=== PATIENT | male | born 1960 | race Caucasian/White ===

== ENCOUNTER 2016-05-26 10:19 | Inpatient (IN) | payer OTHER ==
[2016-05-26] VITALS (9 sets, daily range): BP systolic 113–136; BP diastolic 73–91; PULSE 88–124; RESP 14–26; TEMP 97.2–98.7; O2SAT 96–100
[~2016-05-26] VITALS: Ht 162.6 cm; Wt 61.0 kg
[~2016-05-26 10:19] MED LIST: ALBU2.5I INH; ALBU8I INH; IPRA0.02 NEB; LEVA500T PO; LISI10 PO; NEBUMIS6 INH; PRED10 PO; Z.0.OXYGENDME NC
[2016-05-26] MEDS ORDERED: ALBUAER3 INH (10:44)
[2016-05-26] MEDS ORDERED: ALBU.5I NEB (10:45)
[2016-05-26] MEDS ORDERED: IPRA0.02 NEB (10:45)
[2016-05-26] MEDS ORDERED: LEVO500T3 PO (10:46)
[2016-05-26] MEDS ORDERED: LISI10TA3 PO (10:46)
--- NOTE | 2016-05-26 11:14 | PD ---
HPI Chief Complaint: General Weakness Time Seen by Provider: 11:01 Travel History International Travel<30 days: No Contact w/Intl Traveler<30days: No Traveled to known affect area: No History of Present Illness HPI This patient complains of cough and congestion and shortness of breath and wheezing. He is bringing up some clear phlegm. He also has had nausea and vomiting and diarrhea for a couple of days. He's had no diarrhea today but did have vomiting. Symptoms severity is moderate. He has general malaise. No alleviating factors. Has not checked any temperatures. No chest pain. Is a cigarette smoker long-term. Duration 3 days total. PFSH Past Medical History Diminished Hearing: No Hypertension: Yes Musculoskeletal: Yes (cervical DISC HERNIATIONS) Respiratory: Yes (COPD) Tetanus Vaccination: < 5 Years Influenza Vaccination: No Past Surgical History Abdominal Surgery: Yes (HERNIA REPAIR) Social History Alcohol Use: Yes (OCC) Tobacco Use: Yes (1 PPD) Substance Use: No Allergies-Medications (Allergen,Severity, Reaction): Coded Allergies: No Known Allergies (Verified , 04/21/15) Reported Meds & Prescriptions Reported Meds & Active Scripts Active Reported Lisinopril 10 Mg Tab 10 Mg PO DAILY Levofloxacin 500 Mg Tab 500 Mg PO DAILY Ipratropium Neb (Ipratropium [place]) 0.5 Mg/2.5 Ml Amp 0.5 Mg NEB Q6HR NEB Albuterol Neb (Albuterol Sulfate) 2.5 Mg/0.5 Ml Neb 2.5 Mg NEB Q6HR NEB Note: The Albuterol Sulfate Inhalation Solution is concentrated and must be diluted. Read complete instructions carefully before using. Proair Hfa 8.5 GM Inh (Albuterol Sulfate) 90 Mcg/Act Aer 2 Puff INH Q4-6H PRN 108 mcg/actuation Review of Systems General / Constitutional: No: Fever Eyes: No: Visual changes HENT: No: Headaches Cardiovascular: No: Chest Pain or Discomfort Respiratory: Positive: Cough, Shortness of Breath, Wheezing Gastrointestinal: Positive: Nausea, Vomiting, Diarrhea, No: Abdominal Pain Genitourinary: No: Dysuria Musculoskeletal: No: Pain Skin: No Rash Neurologic: No: Weakness Psychiatric: No: Depression Endocrine: No: Polydipsia Hematologic/Lymphatic: No: Easy Bruising Physical Exam Narrative GENERAL: Well-nourished, well-developed patient with cough and wheeze . SKIN: Warm and dry. HEAD: Atraumatic. Normocephalic. EYES: Pupils equal and round. No scleral icterus. No injection or drainage. ENT: No nasal bleeding or discharge. Mucous membranes pink and moist. NECK: Trachea midline. No JVD. CARDIOVASCULAR: Regular rate and rhythm. No murmur appreciated. Tachycardic at 120 RESPIRATORY: No accessory muscle use. Diffuse expiratory wheezing with rhonchi. Breath sounds equal bilaterally. GASTROINTESTINAL: Abdomen soft, non-tender, nondistended. Hepatic and splenic margins not palpable. MUSCULOSKELETAL: No obvious deformities. No clubbing. No cyanosis. No edema. NEUROLOGICAL: Awake and alert. No obvious cranial nerve deficits. Motor grossly within normal limits. Normal speech. PSYCHIATRIC: Appropriate mood and affect; insight and judgment normal. Data Data Last Documented VS Vital Signs Date Time Temp Pulse Resp B/P Pulse Ox O2 Delivery O2 Flow Rate FiO2 05/26/16 11:31 20 100 Nasal Cannula 2.00 05/26/16 11:31 101 136/73 05/26/16 10:36 98.7 Orders Complete Blood Count With Diff (05/26/16 11:07) Basic Metabolic Panel (Bmp) (05/26/16 11:07) Iv Access Insert/Monitor (05/26/16 11:07) Ecg Monitoring (05/26/16 11:07) Oximetry (05/26/16 11:07) Sodium Chloride 0.9% Flush (Ns Flush) (05/26/16 11:15) Methylprednisolone So Succ Inj (Solumedr (05/26/16 11:15) Albuterol-Ipratropium Neb (Duoneb Neb) (05/26/16 11:15) Sodium Chlor 0.9% 1000 Ml Inj (Ns 1000 M (05/26/16 11:15) Ondansetron Inj (Zofran Inj) (05/26/16 11:15) Chest, Single Ap (05/26/16 ) Labs Laboratory Tests Test 05/26/16 11:13 White Blood Count 13.3 TH/MM3 Red Blood Count 4.90 MIL/MM3 Hemoglobin 15.6 GM/DL Hematocrit 46.9 % Mean Corpuscular Volume 95.8 FL Mean Corpuscular Hemoglobin 31.9 PG Mean Corpuscular Hemoglobin 33.3 % Concent Red Cell Distribution Width 12.1 % Platelet Count 182 TH/MM3 Mean Platelet Volume 8.8 FL Neutrophils (%) (Auto) 84.2 % Lymphocytes (%) (Auto) 4.0 % Monocytes (%) (Auto) 8.7 % Eosinophils (%) (Auto) 0.0 % Basophils (%) (Auto) 3.1 % Neutrophils # (Auto) 11.1 TH/MM3 Lymphocytes # (Auto) 0.5 TH/MM3 Monocytes # (Auto) 1.2 TH/MM3 Eosinophils # (Auto) 0.0 TH/MM3 Basophils # (Auto) 0.4 TH/MM3 CBC Comment DIFF FINAL Differential Comment Sodium Level 126 MEQ/L Potassium Level 2.9 MEQ/L Chloride Level 85 MEQ/L Carbon Dioxide Level 26.8 MEQ/L Anion Gap 14 MEQ/L Blood Urea Nitrogen 9 MG/DL Creatinine 0.81 MG/DL Estimat Glomerular Filtration 98 ML/MIN Rate Random Glucose 126 MG/DL Calcium Level 9.0 MG/DL MDM Medical Decision Making Medical Screen Exam Complete: Yes Emergency Medical Condition: Yes Medical Record Reviewed: Yes Differential Diagnosis Pneumonia, COPD, asthma, gastroenteritis Narrative Course I have reviewed the patient's electronic medical record. He was admitted April 2015 for new onset COPD and sepsis IV placed I gave him IV Solu-Medrol and a series of 3 nebulizer treatments I reviewed His chest x-ray and review the radiologist's interpretation. No major consolidation or pneumothorax. Extended cardiac monitoring reveals sinus tachycardia without ectopy CBC is normal Metabolic profile shows hyponatremia and hypokalemia I gave him 1 L normal saline IV and IV Zofran I'm giving him a second liter normal saline IV with 40 mEq of potassium in it On recheck he is still tachycardic and tachypneic and wheezing He will Require hospital admission I reviewed with Dr. Adams Diagnosis Primary Impression: COPD exacerbation Additional Impressions: Hyponatremia Hypokalemia Admitting Information Admitting Physician Requests: Admit Quintin Girard MD May 26, 2016 11:14
[2016-05-26] MEDS ORDERED: ONDANSETRON HCL 4 MG/2 ML VIAL IVP ONE (11:15)
[2016-05-26] MEDS ORDERED: SODIUM CHLORIDE 0.9% FLUSH 10 ML FLUSH IVF PRN (11:15)
[2016-05-26] MEDS ORDERED: SODIUM CHLOR 0.9% 1000 ML INJ 1,000 ML IV ONE (11:15)
[2016-05-26] MEDS ORDERED: methylPREDNISolone SOD SUCC 125 MG/2 ML VIAL IVP ONE (11:15)
[2016-05-26] MEDS: RESP: ALBUTEROL 2.5 MG/IPRATROPIUM 0.5 MG NEB (SCH) INH ×3 (11:25→21:32)
[2016-05-26 11:27] LABS: AUTOMATED NEUTROPHIL # 11.1 TH/MM3 (1.8-7.7); BASOPHIL # 0.4 TH/MM3 (0-0.2); BASOPHIL % 3.1 % (0.0-2.0); HEMATOCRIT 46.9 % (39.0-51.0); LYMPHOCYTE # 0.5 TH/MM3 (1.0-4.8); MEAN CELL VOLUME 95.8 FL (80.0-100.0); MEAN CORPUSCULAR HEMOGLOBIN 31.9 PG (27.0-34.0); MEAN CORPUSCULAR HGB CONC 33.3 % (32.0-36.0); MONO % 8.7 % (0.0-8.0); NEUT % 84.2 % (16.0-70.0); PLATELET COUNT 182 TH/MM3 (150-450); RED CELL DISTRIBUTION WIDTH 12.1 % (11.6-17.2); WHITE BLOOD COUNT 13.3 TH/MM3 (4.0-11.0)
[2016-05-26 11:28] LABS: HEMO FLAGS DIFF FINAL
--- NOTE | 2016-05-26 11:28 | RADHPO ---
EXAM DATE/TIME: 05/26/2016 11:18 [facility] COMPARISON: CHEST SINGLE AP, April 25, 2015, 7:57. INDICATIONS : Short of breath, cough, bilateral rib pain. MEDICAL HISTORY : Chronic obstructive pulmonary disease. SURGICAL HISTORY : None. ENCOUNTER: Initial ACUITY: 2 days PAIN SCORE: 6/10 LOCATION: Bilateral chest ribs FINDINGS: A single view of the chest demonstrates the lungs to be symmetrically aerated with an area of increas ed density just above the right hemidiaphragm laterally. This may be related to the anterior right se venth rib, however. Stable granulomatous type calcification in the right perihilar distribution. Lung s are otherwise clear. There are no effusions. The cardiomediastinal contours are unremarkable. Oss eous structures are intact. CONCLUSION: 1. Stable, subcentimeter granulomatous type calcification laterally in the right perihilar distributi on. 2. Questionable density in the right lower lobe laterally. This may be related to the anterior right seventh rib/costal chondral junction. I do not believe that this would explain current clinical sympt oms. However, noncontrasted CT scan of the chest to be performed for further characterization if clin ically warranted. Jt Resendez MD on May 26, 2016 at 11:22 Board Certified Radiologist. This report was verified electronically.
[2016-05-26 11:42] LABS: BICARBONATE 26.8 MEQ/L (21.0-32.0)
[2016-05-26 11:43] LABS: POTASSIUM 2.9 MEQ/L (3.5-5.1)
[2016-05-26] MEDS: NS + KCL 40 MEQ INJ 1,000 ML IV SCH ×3 (12:57→21:30)
[2016-05-26] MEDS ORDERED: RESP: ALBUTEROL 2.5 MG/3 ML NEB (PRN) INH (13:00)
[2016-05-26] MEDS ORDERED: SODIUM CHLORIDE 0.9% FLUSH 10 ML FLUSH IV FLUSH PRN (13:00)
[2016-05-26] MEDS ORDERED: POTASSIUM CHLORIDE 10 MEQ CONTROLLED RELEASE TAB PO ONE (13:00)
[2016-05-26] MEDS: AZITHROMYCIN 250 MG TAB PO SCH (13:09)
[2016-05-26] MEDS: cefTRIAXone INJ 1,000 MG in SODIUM CHLORIDE 0.9% INJ 100 ML IV SCH (13:10)
[2016-05-26] MEDS ORDERED: ONDANSETRON HCL 4 MG/2 ML VIAL IV PUSH PRN (14:00)
[2016-05-26] MEDS: ACETAMINOPHEN/HYDROcodone 325 MG/5 MG TAB PO PRN ×2 (14:24→21:29)
--- NOTE | 2016-05-26 16:53 | HHI.HP ---
HPI Service [facility] Hospitalists Primary Care Physician Roc Piper Admission Diagnosis copd exac, hyponatremia,hypokalemia Chief Complaint: SOB, cough Travel History International Travel<30 Days: No Contact w/Intl Traveler <30 Da: No Traveled to Known Affected Are: No Sepsis Criteria SIRS Criteria (2 or more): Heart rate over 90, RR > 20 or PaCO2 < 32, WBC > 42523, < 4000 or > 10% bands Sepsis Criteria (SIRS+source): Infect source susp/known Criteria Outcome: Meets sepsis criteria History of Present Illness 56 y.o. WM with COPD who complains of cough and congestion and shortness of breath and wheezing. He is bringing up some clear to yellow phlegm. He also has had nausea and vomiting and diarrhea for a couple of days. The vomiting is actually a chronic, intermittent issue and is mostly a/w post-tussive episodes. He's had no diarrhea today but did have vomiting. Has not checked any temperatures, but doesn't feel as if he has had fever. No chest pain. Is a cigarette smoker long-term. He notes some epigastric pain from all the wretching last PM. No recent foreign travel. It is noted that he was admitted in Apr 2015 with sepsis and new dx of COPD. Reportedly doesn't feel as bad currently as he did when admitted just over a year ago. No hematochezia or melena. Was noted to be slightly hypokalemic with tachypnea and borderline hypoxia on eval in ER. Pt has been given nebs, oxygen and steroids with some relief of symptoms. Review of Systems Constitutional: COMPLAINS OF: Fatigue, DENIES: Diaphoretic episodes, Fever, Weight gain, Weight loss, Chills, Dizziness, Change in appetite, Night Sweats Endocrine: DENIES: Heat/cold intolerance, Polydipsia, Polyuria, Polyphagia Eyes: DENIES: Blurred vision, Diplopia, Eye inflammation, Eye pain, Vision loss , Photosensitivity, Double Vision Ears, nose, mouth, throat: DENIES: Tinnitus, Hearing loss, Vertigo, Nasal discharge, Oral lesions, Throat pain, Hoarseness, Ear Pain, Running Nose, Epistaxis, Sinus Pain, Toothache, Odynophagia Respiratory: COMPLAINS OF: Cough, Wheezing, Sputum production, Shortness of breath, DENIES: Apneas, Snoring, Hemoptysis Cardiovascular: DENIES: Chest pain, Palpitations, Syncope, Dyspnea on Exertion , PND, Lower Extremity Edema, Orthopnea, Claudication Gastrointestinal: COMPLAINS OF: Abdominal pain, Nausea, Vomiting, DENIES: Black stools, Bloody stools, BRB per rectum, Constipation, Diarrhea, GERD, Reflux, Difficulty Swallowing, Anorexia, See HPI Musculoskeletal: COMPLAINS OF: Joint pain, Back pain Hematologic/lymphatic: DENIES: Bruising, Lymphadenopathy Immunologic/allergic: DENIES: Eczema, Urticaria Neurologic: DENIES: Abnormal gait, Headache, Localized weakness, Paresthesias, Seizures, Speech Problems, Tremor, Poor Balance Psychiatric: COMPLAINS OF: Anxiety Past Family Social History Past Medical History COPD exac cervical 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 Read complete instructions carefully before using. Proair Hfa 8.5 GM Inh (Albuterol Sulfate) 90 Mcg/Act Aer 2 Puff INH Q4-6H PRN 108 mcg/actuation Allergies: Coded Allergies: No Known Allergies (Verified , 04/21/15) Family History Father at 73 with copd complications Mother at 74 due to stroke Social History Smokes 1ppd and has done so for 40 yrs Occasionally drinks EtOH, but did drink heavier in the past Previously worked as [employer] Physical Exam Vital Signs Vital Signs Date Time Temp Pulse Resp B/P Pulse Ox O2 Delivery O2 Flow Rate FiO2 05/26/16 16:00 97.2 101 26 114/91 98 05/26/16 14:10 100 Nasal Cannula 2 05/26/16 14:10 100 16 124/88 96 Nasal Cannula 2 05/26/16 12:40 116 16 113/83 100 Nasal Cannula 2 05/26/16 12:40 16 98 Nasal Cannula 2 05/26/16 11:31 20 100 Nasal Cannula 2.00 05/26/16 11:31 101 18 136/73 100 Nasal Cannula 2 05/26/16 11:28 96 Nasal Cannula 2.00 05/26/16 11:17 18 100 Nasal Cannula 2 05/26/16 10:39 113 18 98 Nasal Cannula 2 05/26/16 10:36 98.7 124 18 130/90 97 Physical Exam GENERAL: This is a thin, well-developed patient, in no apparent distress. a/o. cooperative. SKIN: No rashes, ecchymoses or lesions. Cool and dry. HEAD: Atraumatic. Normocephalic. No temporal or scalp tenderness. EYES: Pupils equal round and reactive. Extraocular motions intact. No scleral icterus. No injection or drainage. ENT: Nose without bleeding, purulent drainage or septal hematoma. Airway patent. NECK: Trachea midline. No JVD or lymphadenopathy. Supple, nontender, no meningeal signs. CARDIOVASCULAR: Regular rhythm without murmurs, gallops, or rubs. Mildly tachycardic with rate around 110 on my exam. RESPIRATORY: Prolonged expiratory phase with wheezes, no crackles, fair air movement. GASTROINTESTINAL: Abdomen soft, nondistended. Mild ttp over xiphoid process. No hepato-splenomegaly, or palpable masses. No guarding. MUSCULOSKELETAL: Extremities without clubbing, cyanosis, or edema. No joint tenderness, effusion, or edema noted. No calf tenderness. NEUROLOGICAL: Awake and alert. Cranial nerves II through XII intact. Motor and sensory grossly within normal limits. Five out of 5 muscle strength in all muscle groups. Normal speech. Laboratory Laboratory Tests Test 05/26/16 11:13 White Blood Count 13.3 Red Blood Count 4.90 Hemoglobin 15.6 Hematocrit 46.9 Mean Corpuscular Volume 95.8 Mean Corpuscular Hemoglobin 31.9 Mean Corpuscular Hemoglobin 33.3 Concent Red Cell Distribution Width 12.1 Platelet Count 182 Mean Platelet Volume 8.8 Neutrophils (%) (Auto) 84.2 Lymphocytes (%) (Auto) 4.0 Monocytes (%) (Auto) 8.7 Eosinophils (%) (Auto) 0.0 Basophils (%) (Auto) 3.1 Neutrophils # (Auto) 11.1 Lymphocytes # (Auto) 0.5 Monocytes # (Auto) 1.2 Eosinophils # (Auto) 0.0 Basophils # (Auto) 0.4 CBC Comment DIFF FINAL Differential Comment Sodium Level 126 Potassium Level 2.9 Chloride Level 85 Carbon Dioxide Level 26.8 Anion Gap 14 Blood Urea Nitrogen 9 Creatinine 0.81 Estimat Glomerular Filtration 98 Rate Random Glucose 126 Calcium Level 9.0 Result Diagram: 05/26/16 1113 05/26/16 1113 Imaging Last 72 hours Impressions Chest X-Ray 05/26/16 0000 Signed Impressions: Service Date/Time: Thursday, May 26, 2016 11:18 - CONCLUSION: 1. Stable, subcentimeter granulomatous type calcification laterally in the right perihilar distribution. 2. Questionable density in the right lower lobe laterally. This may be related to the anterior right seventh rib/costal chondral junction. I do not believe that this would explain current clinical symptoms. However, noncontrasted CT scan of the chest to be performed for further characterization if clinically warranted. Jt Resendez MD Assessment and Plan Problem List: (1) COPD exacerbation Status: Acute Plan: Will continue steroids, supplemental oxygen, nebs, abx. Advised pt to stop smoking. Nicoderm patch (2) Hypokalemia Status: Acute Plan: replace and recheck. (3) Hyponatremia Status: Acute Plan: Possibly from mild dehydration, GI loss. Recheck after IVF (4) HTN (hypertension), benign Status: Chronic Plan: BP borderline low. Will hold BP med at this point. (5) Abnormal finding on chest xray Status: Acute Plan: check CT chest Code Status Full Discussed Condition With ER physician, pt and his daughter Jayden Adams MD PhD May 26, 2016 16:53
[2016-05-26 16:57] LABS: POTASSIUM 3.6 MEQ/L (3.5-5.1)
[2016-05-26] MEDS: methylPREDNISolone SOD SUCC 125 MG/2 ML VIAL IVP SCH ×2 (17:20→23:12)
[2016-05-26] MEDS ORDERED: LISI-515 PO (17:25)
[2016-05-26] MEDS ORDERED: VENL37.5 PO (17:25)
[2016-05-26] MEDS ORDERED: HYDR25TA5 PO (17:25)
[2016-05-26] MEDS: REMOVE OLD NICODERM (NICOTINE) PATCH TD SCH (21:00)
[2016-05-26] MEDS: SODIUM CHLORIDE 0.9% FLUSH 10 ML FLUSH IV FLUSH SCH (21:00)
--- NOTE | 2016-05-26 21:14 | RADHPO ---
EXAM DATE/TIME: 05/26/2016 19:37 [facility] COMPARISON: CHEST SINGLE AP, April 25, 2015, 7:57. CHEST SINGLE AP, May 26, 2016, 11:18. INDICATIONS : Hypoxia. Abnormal chest x-ray. RADIATION DOSE: 7.18 CTDIvol (mGy) MEDICAL HISTORY : Chronic obstructive pulmonary disease. Hypertension. SURGICAL HISTORY : None. ENCOUNTER: Initial ACUITY: 2 days PAIN SCALE: 0/10 LOCATION: chest TECHNIQUE: Volumetric scanning of the chest was performed. Using automated exposure control and adjustment of t he mA and/or kV according to patient size, radiation dose was kept as low as reasonably achievable to obtain optimal diagnostic quality images. FINDINGS: LUNGS: Series of nodular infiltrate in the right lower lung. A densely calcified granuloma is present in the middle lobe. There is mild basilar bronchiectasis. PLEURAE: There is no pleural thickening or pleural effusion. MEDIASTINUM: Calcified right hilar lymph nodes are present. No adenopathy. AXILLAE: Within normal limits. No lymphadenopathy. MUSCULOSKELETAL: Within normal limits for patient age. MISCELLANEOUS: The visualized upper abdominal organs demonstrate no acute abnormality. CONCLUSION: Several areas of focal nodular infiltrate in the right lower lung. These should be followed to resolu tion. Shaheed Clancy MD on May 26, 2016 at 21:09 Board Certified Radiologist. This report was verified electronically.
[2016-05-26] MEDS ORDERED: TEMAZEPAM 15 MG CAP PO ONE (22:00)
[2016-05-27] VITALS (8 sets, daily range): BP systolic 107–148; BP diastolic 69–108; PULSE 66–117; RESP 14–22; TEMP 96–98.6; O2SAT 93–100
[2016-05-27] MEDS: NS + KCL 40 MEQ INJ 1,000 ML IV SCH ×2 (02:47→09:16)
[2016-05-27] MEDS: RESP: ALBUTEROL 2.5 MG/IPRATROPIUM 0.5 MG NEB (SCH) INH ×4 (03:25→21:26)
[2016-05-27] MEDS: methylPREDNISolone SOD SUCC 125 MG/2 ML VIAL IVP SCH ×3 (05:34→17:45)
[2016-05-27] MEDS: ACETAMINOPHEN/HYDROcodone 325 MG/5 MG TAB PO PRN ×4 (05:35→23:51)
[2016-05-27 07:26] LABS: ALKALINE PHOSPHATASE 69 U/L (45-117); ALT (GPT) 62 U/L (12-78); ANION GAP 9 MEQ/L (5-15); AST (GOT) 40 U/L (15-37); BICARBONATE 24.4 MEQ/L (21.0-32.0); BLOOD UREA NITROGEN 10 MG/DL (7-18); CHLORIDE 104 MEQ/L (98-107); GLOMERULAR FILTRATION RATE 91 ML/MIN (>89); POTASSIUM 4.8 MEQ/L (3.5-5.1); SODIUM (NA) 137 MEQ/L (136-145); TOTAL BILIRUBIN ADULT 0.5 MG/DL (0.2-1.0)
[2016-05-27] MEDS: SODIUM CHLORIDE 0.9% FLUSH 10 ML FLUSH IV FLUSH SCH (09:00)
[2016-05-27] MEDS ORDERED: NICOTINE 21 MG/24 HR PATCH TD SCH (09:00)
--- NOTE | 2016-05-27 10:18 | HHI.PR ---
Subjective Remarks Patient admitted with exacerbation copd and CT thorax consistent with bilateral pneumonia on rocephin and zithromax and steroids and duonebulizer still sob with minimal exertion. Patient also complaining neck and low back pain . Objective Vitals GENERAL: SKIN: Warm and dry. HEAD: Atraumatic. Normocephalic. EYES: Pupils equal and round. No scleral icterus. No injection or drainage. ENT: No nasal bleeding or discharge. Mucous membranes pink and moist. NECK: Trachea midline. No JVD. CARDIOVASCULAR: Regular rate and rhythm. RESPIRATORY: No accessory muscle use. Bilateral rhonchi. GASTROINTESTINAL: Abdomen soft, non-tender, nondistended. Hepatic and splenic margins not palpable. MUSCULOSKELETAL: Extremities without clubbing, cyanosis, or edema. No obvious deformities. NEUROLOGICAL: Awake and alert. No obvious cranial nerve deficits. Motor grossly within normal limits. Five out of 5 muscle strength in the arms and legs. Normal speech. PSYCHIATRIC: Appropriate mood and affect; insight and judgment normal. Vital Signs Date Time Temp Pulse Resp B/P Pulse Ox O2 Delivery O2 Flow Rate FiO2 05/27/16 09:24 99 Nasal Cannula 2.00 05/27/16 08:00 96.4 87 18 116/81 99 05/27/16 06:35 20 05/27/16 06:14 98.6 66 16 148/79 93 05/27/16 00:04 97.9 97 14 107/69 97 05/26/16 20:12 97.6 88 14 119/79 97 05/26/16 19:32 99 Nasal Cannula 2.00 05/26/16 16:00 97.2 101 26 114/91 98 05/26/16 14:10 100 Nasal Cannula 2 05/26/16 14:10 100 16 124/88 96 Nasal Cannula 2 05/26/16 12:40 116 16 113/83 100 Nasal Cannula 2 05/26/16 12:40 16 98 Nasal Cannula 2 05/26/16 11:31 20 100 Nasal Cannula 2.00 05/26/16 11:31 101 18 136/73 100 Nasal Cannula 2 05/26/16 11:28 96 Nasal Cannula 2.00 05/26/16 11:17 18 100 Nasal Cannula 2 05/26/16 10:39 113 18 98 Nasal Cannula 2 05/26/16 10:36 98.7 124 18 130/90 97 05/26/16 05/26/16 05/27/16 15:00 23:00 07:00 Intake Total 2100 ml 2939 ml Output Total 500 ml Balance 1600 ml 2939 ml Intake IV Total 2100 ml 2939 ml Output Urine Total 500 ml # Voids 2 Result Diagram: 05/26/16 1113 05/27/16 0638 Imaging Last 72 hours Impressions Chest X-Ray 05/26/16 0000 Signed Impressions: Service Date/Time: Thursday, May 26, 2016 11:18 - CONCLUSION: 1. Stable, subcentimeter granulomatous type calcification laterally in the right perihilar distribution. 2. Questionable density in the right lower lobe laterally. This may be related to the anterior right seventh rib/costal chondral junction. I do not believe that this would explain current clinical symptoms. However, noncontrasted CT scan of the chest to be performed for further characterization if clinically warranted. Jt Resendez MD A/P Problem List: (1) COPD exacerbation Status: Acute Plan: Will continue steroids, supplemental oxygen, nebs, abx. Advised pt to stop smoking. Nicoderm patch will consult pulmonary (2) Hypokalemia Status: Acute Plan: replace and recheck. (3) Hyponatremia Status: Acute Plan: Possibly from mild dehydration, GI loss. Recheck after IVF this has improved (4) HTN (hypertension), benign Status: Chronic Plan: BP borderline low. Will hold BP med at this point. (5) Abnormal finding on chest xray Status: Acute Plan: CT chest suggests bilateral pneumonia (6) Pneumonia Status: Acute Plan: on zithromax and rocephin (7) Back pain Status: Chronic Plan: will get xray (8) Neck pain Status: Chronic Plan: will get xray Elpidio Mcfarlane MD May 27, 2016 10:18
[2016-05-27] MEDS: cefTRIAXone INJ 1,000 MG in SODIUM CHLORIDE 0.9% INJ 100 ML IV SCH (12:05)
[2016-05-27] MEDS: AZITHROMYCIN 250 MG TAB PO SCH (12:05)
[2016-05-27] MEDS: VENLAFAXINE HCL XR 75 MG CAP PO SCH (12:09)
--- NOTE | 2016-05-27 12:58 | RADHPO ---
EXAM DATE/TIME: 05/27/2016 11:09 [facility] COMPARISON: No previous studies available for comparison. INDICATIONS : Lower back pain. No known injury. MEDICAL HISTORY : Arthritis. SURGICAL HISTORY : None. ENCOUNTER: Initial ACUITY: >1 year PAIN SCORE: 5/10 LOCATION: lumbar spine. FINDINGS: Imaging of the lumbar spine demonstrates no evidence of fracture or dislocation. The vertebral bodies are normal in size, shape and position. There are severe degenerative changes present at the level o f L4/L5 and L5/S1. Moderate facet degenerative changes are also noted. Adjacent soft tissues are unremarkable. CONCLUSION: Degenerative disc changes and facet degenerative changes seen within the lower lumbar spine. Glendy Mancilla MD on May 27, 2016 at 12:49 Board Certified Radiologist. This report was verified electronically.
--- NOTE | 2016-05-27 12:59 | RADHPO ---
EXAM DATE/TIME: 05/27/2016 11:14 [facility] COMPARISON: No previous studies available for comparison. INDICATIONS : Neck pain. No known injury. MEDICAL HISTORY : Arthritis. SURGICAL HISTORY : None. ENCOUNTER: Initial ACUITY: 1 year PAIN SCORE: 5/10 LOCATION: cervical spine. FINDINGS: Two projection examination was performed. There is normal alignment and curvature of the vertebral b odies down to the level of C7. No evidence of fracture or subluxation. Vertebral body height is vannesa ntained. There are mild degenerative changes seen from the level of C4-C7. Mild bilateral uncovertebr al joint hypertrophy is also noted. The prevertebral soft tissues are of normal thickness. The atlan to-axial articulation is intact. CONCLUSION: Mild degenerative changes seen within the lower cervical spine. No acute abnormality seen.. Glendy Mancilla MD on May 27, 2016 at 12:57 Board Certified Radiologist. This report was verified electronically.
[2016-05-27 13:41] LABS: HEMOGLOBIN A1a 1.1 %; HEMOGLOBIN A1b 1.6 %; HEMOGLOBIN LA1C 2.7 %; HEMOGLOBIN P3 4.3 %
[2016-05-27] MEDS ORDERED: cefTRIAXone INJ 1,000 MG in SODIUM CHLORIDE 0.9% INJ 100 ML IV SCH (19:00)
[2016-05-27 20:04] LABS: BLOOD GAS BASE EXCESS -2.3 mmol/L (-2-2); BLOOD GAS CARBOXYHEMOGLOBIN 1.3 % (0-4); BLOOD GAS HCO3 21 mmol/L (22-26); BLOOD GAS O2 HGB SATURATION 96 % (90-100); BLOOD GAS OXYGEN CONTENT 16.9 Vol % (12.0-20.0); BLOOD GAS PCO2 32 mmHG (38-42); BLOOD GAS PO2 100 mmHG (61-120); BLOOD GAS TOTAL HGB 12.4 G/DL (12.0-16.0); CRITICAL VALUE NO; DRAW SITE RT RADIAL; LITER FLOW 2 L/M; NUMBER OF ARTERIAL PUNCTURES 1; OXYGEN DEVICE NASAL CANNULA; STAT NO; TEMP CORR TO 98.6; ULNAR PULSE PRESENT
[2016-05-27 20:49] LABS: APTT (PATIENT) 27.1 SEC (24.3-30.1); PROTHROMBIN TIME - PATIENT 10.7 SEC (9.8-11.6)
[2016-05-27] MEDS ORDERED: RESP: ALBUTEROL 2.5 MG/3 ML NEB (PRN) INH (21:00)
[2016-05-27] MEDS: REMOVE OLD NICODERM (NICOTINE) PATCH TD SCH (21:00)
[2016-05-27] MEDS: BUDESONIDE-FORMOTEROL 160/4.5 MCG INHALER INH SCH (21:04)
[2016-05-27] MEDS: methylPREDNISolone SOD SUCC 40 MG/1 ML VIAL IV SCH (23:50)
[2016-05-28] VITALS (7 sets, daily range): BP systolic 143–168; BP diastolic 86–97; PULSE 68–116; RESP 18–23; TEMP 95.7–97.8; O2SAT 96–100
[2016-05-28] MEDS: RESP: ALBUTEROL 2.5 MG/IPRATROPIUM 0.5 MG NEB (SCH) INH ×4 (03:31→19:53)
[2016-05-28] MEDS: methylPREDNISolone SOD SUCC 40 MG/1 ML VIAL IV SCH ×4 (05:54→23:40)
--- NOTE | 2016-05-28 06:00 | MB ---
cc: KAMILA SMITH M.D., JOHN DATE OF CONSULTATION: 05/27/2016 REASON FOR CONSULTATION: COPD. HISTORY OF PRESENT ILLNESS: This is a 56-year-old white male with longstanding history of smoking, has been coughing and bringing up thick whitish-yellow mucus. The patient has had these symptoms for at least 2 weeks. He has wheezing and complains of shortness of breath with activity and had some nausea as well as loose stools. The patient was on a cough medicine and apparently came to the emergency room for evaluation and a chest x-ray was done as well as CT scan of the chest which demonstrated mild nodular infiltrates in the periphery. He was also hypokalemic and hypoxic and has been placed on oxygen at two liters. He denies hemoptysis and did not have any significant fever or chills. Upon admission he was started on IV antibiotics and IV Solu-Medrol, and presently feeling a little better. PAST MEDICAL HISTORY: 1. History of sepsis about a year ago treated with hospitalization and treatment. 2. COPD. 3. Cervical disc disease. 4. History of hypertension. 5. Right inguinal hernia repair. HABITS: The patient smoked one to two packs per day for over 47 years. Alcohol use occasional. MEDICATIONS 1. Lisinopril 10 mg daily. 2. Levofloxacin 500 milligrams 3. Nebulized DuoNeb solution t.i.d. 4. ProAir inhaler p.r.n. FAMILY HISTORY: Significant for COPD in his father. Mother had a stroke. SYSTEM REVIEW: The patient had cough, wheezing, sputum production, chest tightness, epigastric distress, nausea. Denies leg swelling, denies urinary symptoms. No GI bleed. No skin rash. No depression or anxiety. PHYSICAL EXAMINATION: This averagely built white male was mildly dyspneic. VITAL SIGNS: Blood pressure is 130/90, pulse is 105, respiratory rate 22, temperature 98.5. HEENT: Head normocephalic. Pupils reactive. Tongue moist. Throat is injected. Nasal mucosae masses. Neck: Supple. No bruits or thyroid enlargement. Chest: Distant breath sounds with inspiratory and expiratory wheezes scattered bilaterally, prolonged expirations. Heart: The heart sounds are irregular, S1-S2. No murmur. No S3. Abdomen: Soft, benign. No masses, organomegaly or tenderness. Extremities: Mild varicosities and decreased peripheral pulses, no edema. No calf tenderness. Neurologic: Reflexes are 1+ with no gross motor deficits. Cranial nerves grossly intact. Rectal: Exam is deferred. IMPRESSION 1. COPD with acute exacerbation. 2. Bilateral granulomatous lung infiltrates with possible old granulomatous scarring. 3. Hypertension. 4. Airway reactivity. PLAN The patient has been placed on O2 at 2 liters. A blood gas study will be done. Sputum will be sent for culture and Gram stain, and pulmonary function study will be done at the bedside. We will continue with DuoNeb solution with the nebulizer q.i.d., antibiotic coverage including Rocephin 1 gram IV daily, Zithromax 500 mg IV daily and Solu-Medrol added at 60 mg IV q.6 hour. The patient will have a follow up chest x-ray. The patient was counseled about quitting cigarette smoking and nicotine patch used if necessary. We will switch him to p.o. medications once he is clinically stable. Thank you Dr. Smith for this consultation. MD TEJA Retana/GINA /10:58 PM /5:21 AM
[2016-05-28 07:21] LABS: AUTOMATED NEUTROPHIL # 14.6 TH/MM3 (1.8-7.7); BASOPHIL % 0.1 % (0.0-2.0); EOSINOPHIL % 0.2 % (0.0-4.0); HEMATOCRIT 37.2 % (39.0-51.0); HEMO FLAGS DIFF FINAL; LYMPH % 3.5 % (9.0-44.0); LYMPHOCYTE # 0.5 TH/MM3 (1.0-4.8); MEAN CELL VOLUME 97.8 FL (80.0-100.0); MEAN CORPUSCULAR HEMOGLOBIN 32.6 PG (27.0-34.0); MEAN CORPUSCULAR HGB CONC 33.3 % (32.0-36.0); MONO % 2.9 % (0.0-8.0); NEUT % 93.3 % (16.0-70.0); PLATELET COUNT 161 TH/MM3 (150-450); RED CELL DISTRIBUTION WIDTH 13.2 % (11.6-17.2); WHITE BLOOD COUNT 15.6 TH/MM3 (4.0-11.0)
[2016-05-28 07:29] LABS: POTASSIUM 4.6 MEQ/L (3.5-5.1)
[2016-05-28 07:33] LABS: BICARBONATE 25.7 MEQ/L (21.0-32.0)
[2016-05-28] MEDS: VENLAFAXINE HCL XR 75 MG CAP PO SCH (08:43)
[2016-05-28] MEDS: BUDESONIDE-FORMOTEROL 160/4.5 MCG INHALER INH SCH ×2 (08:46→21:25)
[2016-05-28] MEDS: ACETAMINOPHEN/HYDROcodone 325 MG/5 MG TAB PO PRN ×4 (08:46→23:40)
--- NOTE | 2016-05-28 11:11 | HHI.PR ---
Subjective Remarks Patient feeling a little better djd cervical and lumbar based on xrays. Seen by pulmonary and continued on medications for now. Objective Vitals GENERAL: SKIN: Warm and dry. HEAD: Atraumatic. Normocephalic. EYES: Pupils equal and round. No scleral icterus. No injection or drainage. ENT: No nasal bleeding or discharge. Mucous membranes pink and moist. NECK: Trachea midline. No JVD. CARDIOVASCULAR: Regular rate and rhythm. RESPIRATORY: No accessory muscle use. Decrease breath sounds GASTROINTESTINAL: Abdomen soft, non-tender, nondistended. Hepatic and splenic margins not palpable. MUSCULOSKELETAL: Extremities without clubbing, cyanosis, or edema. No obvious deformities. NEUROLOGICAL: Awake and alert. No obvious cranial nerve deficits. Motor grossly within normal limits. Five out of 5 muscle strength in the arms and legs. Normal speech. PSYCHIATRIC: Appropriate mood and affect; insight and judgment normal. Vital Signs Date Time Temp Pulse Resp B/P Pulse Ox O2 Delivery O2 Flow Rate FiO2 05/28/16 09:28 96 Nasal Cannula 2.00 05/28/16 08:00 95.7 116 23 167/92 97 05/28/16 00:47 97.0 86 22 151/97 97 05/27/16 21:26 99 Nasal Cannula 2.00 05/27/16 20:32 96.2 98 22 148/108 98 05/27/16 16:00 96.0 117 18 142/83 99 05/27/16 12:00 96.4 105 18 131/80 100 05/27/16 05/27/16 05/28/16 15:00 23:00 07:00 Intake Total 620 ml Balance 620 ml Intake Oral 620 ml # Voids 2 2 1 # Bowel Movements 1 Result Diagram: 05/28/16 0627 05/28/16 0627 Imaging Last 72 hours Impressions Chest X-Ray 05/26/16 0000 Signed Impressions: Service Date/Time: Thursday, May 26, 2016 11:18 - CONCLUSION: 1. Stable, subcentimeter granulomatous type calcification laterally in the right perihilar distribution. 2. Questionable density in the right lower lobe laterally. This may be related to the anterior right seventh rib/costal chondral junction. I do not believe that this would explain current clinical symptoms. However, noncontrasted CT scan of the chest to be performed for further characterization if clinically warranted. Jt Resendez MD A/P Problem List: (1) COPD exacerbation Status: Acute Plan: Will continue steroids, supplemental oxygen, nebs, abx. Advised pt to stop smoking. Nicoderm patch (2) Hypokalemia Status: Acute Plan: replace and recheck. (3) Hyponatremia Status: Acute Plan: Possibly from mild dehydration, GI loss. Recheck after IVF this has improved (4) HTN (hypertension), benign Status: Chronic Plan: BP borderline low. Will hold BP med at this point. (5) Abnormal finding on chest xray Status: Acute Plan: CT chest suggests bilateral pneumonia (6) Pneumonia Status: Acute Plan: on zithromax and rocephin (7) Back pain Status: Chronic Plan: djd on xray (8) Neck pain Status: Chronic Plan: djd on xray Assessment and Plan hopefully home sunday or sunday Elpidio Mcfarlane MD May 28, 2016 11:11
[2016-05-28] MEDS: cefTRIAXone INJ 1,000 MG in SODIUM CHLORIDE 0.9% INJ 100 ML IV SCH (12:38)
[2016-05-28] MEDS: AZITHROMYCIN INJ 500 MG in SODIUM CHLOR 0.9% 250 ML INJ 250 ML IV SCH (12:38)
--- NOTE | 2016-05-28 18:23 | HHI.PR ---
Subjective Remarks Doing better. Coughed up yellow sputum. No fever. Objective Vital Signs Date Time Temp Pulse Resp B/P Pulse Ox O2 Delivery O2 Flow Rate FiO2 05/28/16 16:00 96.0 101 22 152/91 98 05/28/16 12:00 96.0 101 21 143/86 100 05/28/16 09:28 96 Nasal Cannula 2.00 05/28/16 08:00 95.7 116 23 167/92 97 05/28/16 00:47 97.0 86 22 151/97 97 05/27/16 21:26 99 Nasal Cannula 2.00 05/27/16 20:32 96.2 98 22 148/108 98 I/O 05/27/16 05/27/16 05/27/16 05/28/16 05/28/16 05/28/16 07:00 15:00 23:00 07:00 15:00 23:00 Intake Total 2939 ml 620 ml Balance 2939 ml 620 ml Intake Oral 620 ml IV Total 2939 ml # Voids 2 2 2 1 # Bowel Movements 1 Result Diagram: 05/28/1662605/28/16 0627 Objective Remarks This averagely built white male was alert HEENT: Head normocephalic. Pupils reactive. Tongue moist. Throat is injected. Nasal mucosae masses. Neck: Supple. No bruits or thyroid enlargement. Chest: Distant breath sounds with inspiratory and expiratory wheezes scattered bilaterally, prolonged expirations. Heart: The heart sounds are regular, S1-S2. No murmur. No S3. Abdomen: Soft, benign. No masses, organomegaly or tenderness. Extremities: Mild varicosities and decreased peripheral pulses, no edema. No calf tenderness. Neurologic: Reflexes are 1+ with no gross motor deficits. Cranial nerves grossly intact. Rectal: Exam is deferred. Assessment and Plan Assessment and Plan IMPRESSION 1. COPD with acute exacerbation. 2. Bilateral granulomatous lung infiltrates with possible old granulomatous scarring. 3. Hypertension. 4. Airway reactivity. Plan : 1. Cont Antibiotics 2. O2 at 2 L. May need home O2. 3. Solumedrol 40 mg IV q6h. 4. Nebs qid , duoneb. 5. Add Cough med prn 6. PFT in am Mali Lazcano MD May 28, 2016 18:22
[2016-05-28] MEDS: REMOVE OLD NICODERM (NICOTINE) PATCH TD SCH (21:00)
[2016-05-28] MEDS ORDERED: BUDESONIDE-FORMOTEROL 160/4.5 MCG INHALER INH SCH (21:00)
[2016-05-29] VITALS (7 sets, daily range): BP systolic 121–192; BP diastolic 81–94; PULSE 85–98; RESP 18–20; TEMP 96.1–97.3; O2SAT 93–98
[2016-05-29] MEDS: LISINOPRIL 20 MG TAB PO SCH ×2 (01:04→09:21)
[2016-05-29] MEDS: RESP: ALBUTEROL 2.5 MG/IPRATROPIUM 0.5 MG NEB (SCH) INH ×2 (03:21→09:04)
[2016-05-29 06:28] LABS: AUTOMATED NEUTROPHIL # 10.7 TH/MM3 (1.8-7.7); BASOPHIL % 0.1 % (0.0-2.0); HEMATOCRIT 37.7 % (39.0-51.0); LYMPH % 3.6 % (9.0-44.0); LYMPHOCYTE # 0.4 TH/MM3 (1.0-4.8); MEAN CELL VOLUME 97.6 FL (80.0-100.0); MEAN CORPUSCULAR HEMOGLOBIN 31.6 PG (27.0-34.0); MEAN CORPUSCULAR HGB CONC 32.4 % (32.0-36.0); MONO % 3.7 % (0.0-8.0); NEUT % 92.6 % (16.0-70.0); PLATELET COUNT 182 TH/MM3 (150-450); RED BLOOD COUNT 3.87 MIL/MM3 (4.50-5.90); RED CELL DISTRIBUTION WIDTH 12.7 % (11.6-17.2); WHITE BLOOD COUNT 11.5 TH/MM3 (4.0-11.0)
[2016-05-29] MEDS: methylPREDNISolone SOD SUCC 40 MG/1 ML VIAL IV SCH ×4 (06:28→23:32)
[2016-05-29] MEDS: ACETAMINOPHEN/HYDROcodone 325 MG/5 MG TAB PO PRN ×4 (06:34→23:33)
[2016-05-29 06:35] LABS: HEMO FLAGS DIFF FINAL
--- NOTE | 2016-05-29 09:00 | RADHPO ---
EXAM DATE/TIME: 05/29/2016 08:19 [place] COMPARISON: No previous studies available for comparison. INDICATIONS : Short of breath. MEDICAL HISTORY : Chronic obstructive pulmonary disease. SURGICAL HISTORY : None. ENCOUNTER: Subsequent ACUITY: 4 - 6 days PAIN SCORE: 0/10 LOCATION: Bilateral chest FINDINGS: Very minimal bibasilar parenchymal changes are evident with mild hyperinflation. Majority of these a re probably on the right side base of the CT scan. These are best seen on the lateral exam. The car diomediastinal contours are unremarkable. Osseous structures are intact. CONCLUSION: Minimal bibasilar parietal changes probably right base seen best on lateral exam. This will represen t the base line for conventional radiographic follow up. Russell Zelaya MD FACR on May 29, 2016 at 8:55 Board Certified Radiologist. This report was verified electronically.
[2016-05-29] MEDS: VENLAFAXINE HCL XR 75 MG CAP PO SCH (09:20)
[2016-05-29] MEDS: BUDESONIDE-FORMOTEROL 160/4.5 MCG INHALER INH SCH ×2 (09:20→21:02)
--- NOTE | 2016-05-29 10:02 | HHI.PR ---
Subjective Remarks Patient cough better labs are better chest xray improved for PFT today Objective Vitals GENERAL: SKIN: Warm and dry. HEAD: Atraumatic. Normocephalic. EYES: Pupils equal and round. No scleral icterus. No injection or drainage. ENT: No nasal bleeding or discharge. Mucous membranes pink and moist. NECK: Trachea midline. No JVD. CARDIOVASCULAR: Regular rate and rhythm. RESPIRATORY: No accessory muscle use. Clear to auscultation. Breath sounds equal bilaterally. GASTROINTESTINAL: Abdomen soft, non-tender, nondistended. Hepatic and splenic margins not palpable. MUSCULOSKELETAL: Extremities without clubbing, cyanosis, or edema. No obvious deformities. NEUROLOGICAL: Awake and alert. No obvious cranial nerve deficits. Motor grossly within normal limits. Five out of 5 muscle strength in the arms and legs. Normal speech. PSYCHIATRIC: Appropriate mood and affect; insight and judgment normal. Vital Signs Date Time Temp Pulse Resp B/P Pulse Ox O2 Delivery O2 Flow Rate FiO2 05/29/16 09:06 98 Nasal Cannula 2.00 05/29/16 08:25 18 05/29/16 08:00 96.1 95 20 151/94 98 05/29/16 04:00 96.5 90 18 162/81 93 05/29/16 00:00 96.4 85 18 192/91 97 05/28/16 20:00 97.8 68 18 168/89 98 05/28/16 19:54 98 Nasal Cannula 2.00 05/28/16 16:00 96.0 101 22 152/91 98 05/28/16 12:00 96.0 101 21 143/86 100 05/28/16 05/28/16 05/29/16 15:00 23:00 07:00 Intake Total 450 ml 600 ml Output Total 400 ml Balance 450 ml 200 ml Intake Oral 450 ml 600 ml Output Urine Total 400 ml # Voids 2 3 # Bowel Movements 0 0 Result Diagram: 05/29/16 0530 05/28/16 0627 Imaging Last 72 hours Impressions Chest X-Ray 05/26/16 0000 Signed Impressions: Service Date/Time: Thursday, May 26, 2016 11:18 - CONCLUSION: 1. Stable, subcentimeter granulomatous type calcification laterally in the right perihilar distribution. 2. Questionable density in the right lower lobe laterally. This may be related to the anterior right seventh rib/costal chondral junction. I do not believe that this would explain current clinical symptoms. However, noncontrasted CT scan of the chest to be performed for further characterization if clinically warranted. Jt Resendez MD A/P Problem List: (1) COPD exacerbation Status: Acute Plan: Will continue steroids, supplemental oxygen, nebs, abx. Advised pt to stop smoking. Nicoderm patch will need oxygen walk test probable discharge tomorrow (2) Hypokalemia Status: Acute Plan: replace and recheck. (3) Hyponatremia Status: Acute Plan: Possibly from mild dehydration, GI loss. Recheck after IVF this has improved (4) HTN (hypertension), benign Status: Chronic Plan: BP borderline low. Will hold BP med at this point. (5) Abnormal finding on chest xray Status: Acute Plan: CT chest suggests bilateral pneumonia (6) Pneumonia Status: Acute Plan: on zithromax and rocephin improved on chest xray (7) Back pain Status: Chronic Plan: djd on xray (8) Neck pain Status: Chronic Plan: djd on xray Assessment and Plan hopefully home sunday or sunday Elpidio Mcfarlane MD May 29, 2016 10:02
[2016-05-29] MEDS: cefTRIAXone INJ 1,000 MG in SODIUM CHLORIDE 0.9% INJ 100 ML IV SCH (12:57)
[2016-05-29] MEDS: AZITHROMYCIN INJ 500 MG in SODIUM CHLOR 0.9% 250 ML INJ 250 ML IV SCH (12:58)
[2016-05-29] MEDS: RESP: ALBUTEROL 2.5 MG/IPRATROPIUM 0.5 MG NEB (SCH) NEB ×2 (14:59→19:51)
[2016-05-29] MEDS: NICOTINE 21 MG/24 HR PATCH TD SCH (20:00)
[2016-05-30] VITALS: BP 163/101; PULSE 90; RESP 18; TEMP 97.8; O2SAT 98
[2016-05-30 00:57] VITALS: BP 168/105
[2016-05-30] MEDS ORDERED: LISINOPRIL 20 MG TAB PO ONE (01:15)
[2016-05-30] MEDS: ACETAMINOPHEN/HYDROcodone 325 MG/5 MG TAB PO PRN ×2 (05:47→12:47)
[2016-05-30] MEDS: methylPREDNISolone SOD SUCC 40 MG/1 ML VIAL IV SCH ×2 (05:47→12:00)
[2016-05-30 07:44] VITALS: O2SAT 99
[2016-05-30] MEDS: RESP: ALBUTEROL 2.5 MG/IPRATROPIUM 0.5 MG NEB (SCH) NEB (07:44)
[2016-05-30 08:00] VITALS: BP 166/100; PULSE 78; RESP 18; TEMP 97.3; O2SAT 100
[2016-05-30] MEDS: NICOTINE 21 MG/24 HR PATCH TD SCH (08:36)
[2016-05-30] MEDS: BUDESONIDE-FORMOTEROL 160/4.5 MCG INHALER INH SCH (08:37)
[2016-05-30] MEDS: VENLAFAXINE HCL XR 75 MG CAP PO SCH (08:37)
[2016-05-30] MEDS: LISINOPRIL 20 MG TAB PO SCH (08:37)
[2016-05-30] MEDS ORDERED: REMOVE OLD NICODERM (NICOTINE) PATCH TD SCH (09:00)
[2016-05-30] MEDS ORDERED: SYMB160A INH (10:51)
[2016-05-30] MEDS ORDERED: HYDR-3516 PO (10:51)
[2016-05-30] MEDS ORDERED: LISI-515 PO (10:51)
[2016-05-30] MEDS ORDERED: NICO21DI2 TD (10:51)
--- NOTE | 2016-05-30 10:59 | HHI.DS ---
Discharge Summary Admission Date May 26, 2016 at 12:33 Admitting Diagnosis copd exac, hyponatremia,hypokalemia (1) COPD exacerbation (2) Hypokalemia Diagnosis: Secondary (3) Hyponatremia Diagnosis: Secondary (4) HTN (hypertension), benign Diagnosis: Secondary (5) Abnormal finding on chest xray Diagnosis: Secondary (6) Pneumonia Diagnosis: [facility] (7) Back pain Diagnosis: Secondary (8) Neck pain Diagnosis: Secondary (9) Pneumonia Diagnosis: [facility] Brief History 56 y.o. WM with COPD who complains of cough and congestion and shortness of breath and wheezing. He is bringing up some clear to yellow phlegm. He also has had nausea and vomiting and diarrhea for a couple of days. The vomiting is actually a chronic, intermittent issue and is mostly a/w post-tussive episodes. He's had no diarrhea today but did have vomiting. Has not checked any temperatures, but doesn't feel as if he has had fever. No chest pain. Is a cigarette smoker long-term. He notes some epigastric pain from all the wretching last PM. No recent foreign travel. It is noted that he was admitted in Apr 2015 with sepsis and new dx of COPD. Reportedly doesn't feel as bad currently as he did when admitted just over a year ago. No hematochezia or melena. Was noted to be slightly hypokalemic with tachypnea and borderline hypoxia on eval in ER. Pt has been given nebs, oxygen and steroids with some relief of symptoms. CBC/BMP: 05/29/16 0530 05/28/16 0627 Significant Findings Laboratory Tests Test 05/27/16 05/28/16 05/29/16 19:55 06:27 05:30 Blood Gas HCO3 21 mmol/L (22-26) Blood Gas Base Excess -2.3 mmol/L (-2-2) Arterial Blood pH 7.44 (7.380-7.420) Arterial Blood Partial 32 mmHG (38-42) Pressure CO2 White Blood Count 15.6 TH/MM3 11.5 TH/MM3 (4.0-11.0) (4.0-11.0) Red Blood Count 3.80 MIL/MM3 3.87 MIL/MM3 (4.50-5.90) (4.50-5.90) Hemoglobin 12.4 GM/DL 12.2 GM/DL (13.0-17.0) (13.0-17.0) Hematocrit 37.2 % 37.7 % (39.0-51.0) (39.0-51.0) Neutrophils (%) (Auto) 93.3 % 92.6 % (16.0-70.0) (16.0-70.0) Lymphocytes (%) (Auto) 3.5 % 3.6 % (9.0-44.0) (9.0-44.0) Neutrophils # (Auto) 14.6 TH/MM3 10.7 TH/MM3 (1.8-7.7) (1.8-7.7) Lymphocytes # (Auto) 0.5 TH/MM3 0.4 TH/MM3 (1.0-4.8) (1.0-4.8) Sodium Level 135 MEQ/L (136-145) Random Glucose 147 MG/DL (74-106) Calcium Level 8.3 MG/DL (8.5-10.1) PE at Discharge GENERAL: SKIN: Warm and dry. HEAD: Atraumatic. Normocephalic. EYES: Pupils equal and round. No scleral icterus. No injection or drainage. ENT: No nasal bleeding or discharge. Mucous membranes pink and moist. NECK: Trachea midline. No JVD. CARDIOVASCULAR: Regular rate and rhythm. RESPIRATORY: No accessory muscle use. Rhonchi at bases GASTROINTESTINAL: Abdomen soft, non-tender, nondistended. Hepatic and splenic margins not palpable. MUSCULOSKELETAL: Extremities without clubbing, cyanosis, or edema. No obvious deformities. NEUROLOGICAL: Awake and alert. No obvious cranial nerve deficits. Motor grossly within normal limits. Five out of 5 muscle strength in the arms and legs. Normal speech. PSYCHIATRIC: Appropriate mood and affect; insight and judgment normal. Hospital Course Patient admitted with exacerbation of copd . Patient at home has nebulizer and oxygen was started on IV steroids and on CT thorax did have pneumonia and was started on IV zithromax and rocephin with improvement on chest xray also was seen by pulmonary and symbicort was added and patient counseled on smoking and started on habitrol patch which will be continued. Patient had neck and back pain xrays showed djd on norco with improvement. Patient improved clinically and will be discharged with 1 week of cefzil 500 bid and zithromax 500 a day prednisone taper 40 for 5 days 30 for 5 days 20 for 5 days 10 for 5 days then 5 for 5 days and symbicort and habitrol patch continue lisinopril for blood pressure which was increased as his blood pressure was high to 20 bid and this will be called in as well. Will forward and discuss with his PCP. low potassium and sodium resolved with IV treatment. Pt Condition on Discharge: Good Discharge Disposition: Discharge Home Discharge Instructions DIET: Follow Instructions for: Heart Healthy Diet Activities you can perform: Regular-No Restrictions New Medications: Budesonide-Formoterol Inh (Symbicort Inh) 160-4.5 Mcg/Act Aero 2 PUFF INH Q12HR copd Days 30 INHALER Hydrocodone-Acetaminophen (Hydrocodone-Acetaminophen) 5-325 mg Tab 1 TAB PO Q6H PRN pain level 3-10 #28 Ref 1 TAB Lisinopril (Lisinopril) 20 Mg Tab 20 MG PO DAILY htn #60 TAB Nicotine Patch (Nicotine Patch) 21 Mg/24 Hr Patch 1 PATCH TD DAILY smoking Days 7 Ref 0 BOX Continued Medications: Albuterol 8.5 GM Inh (Proair Hfa 8.5 GM Inh) 90 Mcg/Act Aer 2 PUFF INH Q4-6H 108 mcg/actuation PRN SHORTNESS OF BREATH #1 Ref 0 INHALER Albuterol Neb (Albuterol Neb) 2.5 Mg/0.5 Ml Neb 2.5 MG NEB Q6HR NEB Note: The Albuterol Sulfate Inhalation Solution is concentrated and must be diluted. Read complete instructions carefully before using. BOX Ipratropium Neb (Ipratropium Neb) 0.5 Mg/2.5 Ml Amp 0.5 MG NEB Q6HR NEB Breathing Treatment Ref 0 NEBULE Lisinopril (Lisinopril) 20 Mg Tab 20 MG PO DAILY #30 Ref 0 TAB Venlafaxine (Effexor) 37.5 Mg Tab 37.5 MG PO Q12H #60 Ref 0 TAB Discontinued Medications: Hydrochlorothiazide (Hydrochlorothiazide) 25 Mg Tab 25 MG PO DAILY #30 Ref 0 TAB Additional Information follow up pcp 1 week Elpidio Mcfarlane MD May 30, 2016 10:59
[2016-05-30] MEDS: cefTRIAXone INJ 1,000 MG in SODIUM CHLORIDE 0.9% INJ 100 ML IV SCH (12:00)
[2016-05-30] MEDS: AZITHROMYCIN INJ 500 MG in SODIUM CHLOR 0.9% 250 ML INJ 250 ML IV SCH (12:47)
--- NOTE | 2016-07-03 10:31 | RSPPFT ---
DATE OF PROCEDURE: 05/28/16 COMMENTS: Spirometry demonstrates an FEV1 of 1.4 at 45% of predicted, FVC of 3.3 at 87%, FEV1/FVC ratio is 42%. Post-bronchodilator study demonstrated no significant change. Lung volumes were not completed. Flow volume loops suggest an obstructive pattern. IMPRESSION: 1. Moderately severe obstructive disease. 2. No significant change following use of bronchodilator.
== END 2016-05-30 14:36 | disposition home or self-care (01) | DRG 190 ==
LOC: PHED 10:19 → PHEDA 12:33 → OBSVTOIN 12:33 → INTOOBSV 12:33 → PH3A 15:30
PROVIDERS: ADMIT Family Medicine; ATTEND Family Medicine
DX: J44.0 Chronic obstructive pulmonary disease with (acute) lower respiratory infection (principal); J18.9 Pneumonia, unspecified organism; J44.1 Chronic obstructive pulmonary disease with (acute) exacerbation; E87.1 Hypo-osmolality and hyponatremia; E87.6 Hypokalemia; I10 Essential (primary) hypertension; F17.210 Nicotine dependence, cigarettes, uncomplicated; M50.30 Other cervical disc degeneration, unspecified cervical region
CPT/HCPCS: 36600; 71010; 71020; 71250; 72040; 72100; 80048; 80053; 82805; 83036; 85025; 85610; 85730; 94060; 94640; 94664; 96361; 96374; 96375; J0456; J0696; J2405; J2920; J2930; J3480; J7030; J7050

== ENCOUNTER 2016-06-03 06:26 | Emergency (ER) | payer OTHER ==
[~2016-06-03] VITALS: Ht 162.6 cm; Wt 62.1 kg
[~2016-06-03 06:26] MED LIST changes: +ALBU.5I NEB; -ALBU2.5I INH; -ALBU8I INH; +ALBUAER3 INH; +HYDR-3516 PO; -LEVA500T PO; +LISI-515 PO; -LISI10 PO; -NEBUMIS6 INH; +NICO21DI2 TD; -PRED10 PO; +SYMB160A INH; +VENL37.5 PO; -Z.0.OXYGENDME NC
[2016-06-03 06:32] VITALS: BP 163/102; PULSE 92; RESP 16; TEMP 98.8; O2SAT 91
[2016-06-03] MEDS ORDERED: RESP: ALBUTEROL 2.5 MG/3 ML NEB (SCH) NEB ONE (07:15)
[2016-06-03 07:41] LABS: CHLORIDE 100 MEQ/L (98-107); SODIUM (NA) 140 MEQ/L (136-145)
--- NOTE | 2016-06-03 07:41 | PD ---
HPI Chief Complaint: Edema Time Seen by Provider: 07:05 Travel History International Travel<30 days: No Contact w/Intl Traveler<30days: No Traveled to known affect area: No History of Present Illness HPI This is a 56-year-old male who was recently hospitalized for COPD exacerbation who presents to the emergency department today with 4 days of swelling and redness of his legs, worse on the left than the right, constant, worsening. He says he feels like every time he lightly touches his skin he starts to bleed. He's also noticed a significant amount of swelling in his legs which is new. He 's never had this before. He denies recently being started on any blood thinners. He is on home oxygen for his COPD. PFSH Past Medical History Anxiety: Yes Cancer: No Diminished Hearing: No Endocrine: No Gastrointestinal Disorders: Yes Genitourinary: No Hypertension: Yes Immune Disorder: No Musculoskeletal: Yes (cervical DISC HERNIATIONS) Neurologic: No Psychiatric: Yes Reproductive: No Respiratory: Yes (COPD) Sickle Cell Disease: No Past Surgical History Abdominal Surgery: Yes (HERNIA REPAIR) Social History Alcohol Use: Yes (OCC) Tobacco Use: Yes (QUIT AFTER LAST ADMISSION, USES E-CIG) Substance Use: No Allergies-Medications (Allergen,Severity, Reaction): Coded Allergies: No Known Allergies (Verified , 06/03/16) Reported Meds & Prescriptions Reported Meds & Active Scripts Active Nicotine Patch (Nicotine) 21 Mg/24 Hr Patch 1 Patch TD DAILY 7 Days Lisinopril 20 Mg Tab 20 Mg PO DAILY Hydrocodone-Acetaminophen 5-325 mg Tab 1 Tab PO Q6H PRN Symbicort Inh (Budesonide/Formoterol Fumarate) 160-4.5 Mcg/Act Aero 2 Puff INH Q12HR 30 Days Reported Effexor (Venlafaxine HCl) 37.5 Mg Tab 37.5 Mg PO Q12H Ipratropium Neb (Ipratropium [place]) 0.5 Mg/2.5 Ml Amp 0.5 Mg NEB Q6HR NEB Albuterol Neb (Albuterol Sulfate) 2.5 Mg/0.5 Ml Neb 2.5 Mg NEB Q6HR NEB Note: The Albuterol Sulfate Inhalation Solution is concentrated and must be diluted. Read complete instructions carefully before using. Proair Hfa 8.5 GM Inh (Albuterol Sulfate) 90 Mcg/Act Aer 2 Puff INH Q4-6H PRN 108 mcg/actuation Review of Systems Except as stated in HPI: all other systems reviewed are Neg Physical Exam Narrative GENERAL:Well appearing, no acute distress SKIN: Purpura on the anterior aspect of the bilateral lower extremities, left greater than right, nonblanching, no warmth HEAD: Atraumatic. Normocephalic. EYES: Pupils equal and round. No injection or drainage. ENT: Moist mucous membranes NECK: Trachea midline. CARDIOVASCULAR: Regular rate and rhythm. No murmur appreciated. 2+ bilateral pitting edema in the lower extremities. RESPIRATORY: Diffuse expiratory wheezing with poor air movement, no accessory muscle use, speaking full sentences GASTROINTESTINAL: Abdomen soft, non-tender, nondistended. MUSCULOSKELETAL: No obvious deformities. NEUROLOGICAL: Awake and alert. No obvious cranial nerve deficits. Moving all extremities. PSYCHIATRIC: Appropriate mood and affect; insight and judgment normal. Data Data Last Documented VS Vital Signs Date Time Temp Pulse Resp B/P Pulse Ox O2 Delivery O2 Flow Rate FiO2 06/03/16 06:56 90 18 99 Nasal Cannula 2 06/03/16 06:32 98.8 163/102 Orders Complete Blood Count With Diff (06/03/16 07:09) Comprehensive Metabolic Panel (06/03/16 07:09) Prothrombin Time / Inr (Pt) (06/03/16 07:09) Act Partial Throm Time (Ptt) (06/03/16 07:09) B-Type Natriuretic Peptide (06/03/16 07:09) ^ Insert Iv (06/03/16 07:09) Albuterol Neb (Albuterol Neb) (06/03/16 07:15) Furosemide Inj (Lasix Inj) (06/03/16 08:15) Labs Laboratory Tests Test 06/03/16 07:22 White Blood Count 8.6 TH/MM3 Red Blood Count 4.18 MIL/MM3 Hemoglobin 13.8 GM/DL Hematocrit 40.3 % Mean Corpuscular Volume 96.2 FL Mean Corpuscular Hemoglobin 33.0 PG Mean Corpuscular Hemoglobin 34.3 % Concent Red Cell Distribution Width 13.2 % Platelet Count 270 TH/MM3 Mean Platelet Volume 8.2 FL Neutrophils (%) (Auto) 65.3 % Lymphocytes (%) (Auto) 21.8 % Monocytes (%) (Auto) 8.5 % Eosinophils (%) (Auto) 2.0 % Basophils (%) (Auto) 2.4 % Neutrophils # (Auto) 5.6 TH/MM3 Lymphocytes # (Auto) 1.9 TH/MM3 Monocytes # (Auto) 0.7 TH/MM3 Eosinophils # (Auto) 0.2 TH/MM3 Basophils # (Auto) 0.2 TH/MM3 CBC Comment DIFF FINAL Differential Comment Prothrombin Time 10.1 SEC Prothromb Time International 0.9 RATIO Ratio Activated Partial 23.1 SEC Thromboplast Time Sodium Level 140 MEQ/L Potassium Level 4.0 MEQ/L Chloride Level 100 MEQ/L Carbon Dioxide Level 32.9 MEQ/L Anion Gap 7 MEQ/L Blood Urea Nitrogen 13 MG/DL Creatinine 0.82 MG/DL Estimat Glomerular Filtration 96 ML/MIN Rate Random Glucose 96 MG/DL Calcium Level 8.8 MG/DL Total Bilirubin 0.5 MG/DL Aspartate Amino Transf 49 U/L (AST/SGOT) Alanine Aminotransferase 108 U/L (ALT/SGPT) Alkaline Phosphatase 58 U/L B-Type Natriuretic Peptide 133 PG/ML Total Protein 6.2 GM/DL Albumin 3.0 GM/DL MDM Medical Decision Making Medical Screen Exam Complete: Yes Emergency Medical Condition: Yes Interpretation(s) Afebrile, hypertensive No leukocytosis BNP is 133 Coags are normal Differential Diagnosis Cellulitis, thrombocytopenia, coagulopathy, congestive heart failure, vasculitis Narrative Course This is a 56-year-old male who presents to the emergency department with a rash on his lower extremities associated with some edema. His rash appears to be purpura and I suspect he may have a vasculitis which will require further testing as an outpatient. He was placed on a monitor and an IV was established. Labs are obtained which were all reassuring with a normal BNP and normal coags and platelets. I think the patient can be discharged and follow up with his primary care physician. He says he has an appointment in 4 days. I did give him a dose of Lasix for symptomatic relief and will prescribe him a short course of Lasix as an outpatient. Diagnosis Primary Impression: Purpura Patient Instructions: General Instructions Additional Instructions: If you develop severe chest pain, shortness of breath, sweating, lightheadedness , dizziness or difficulty breathing return to the emergency department immediately. Follow-up with your primary care physician without fail regarding your rash. Med/Other Pt SpecificInfo: Prescription(s) given Scripts Potassium Chloride ER 20 Meq Tab20 Meq PO DAILY 5 Days Ref 0 Prov:Rachel Mcclain MD 06/03/16 Furosemide (Lasix)20 Mg Tab20 Mg PO DAILY #5 TAB Ref 0 Prov:Rachel Mcclain MD 06/03/16 Disposition: 01 DISCHARGE HOME Condition: Stable Rachel Mcclain MD Jun 03, 2016 07:41
[2016-06-03 07:42] LABS: AUTOMATED NEUTROPHIL # 5.6 TH/MM3 (1.8-7.7); BASOPHIL # 0.2 TH/MM3 (0-0.2); BASOPHIL % 2.4 % (0.0-2.0); EOSINOPHIL # 0.2 TH/MM3 (0-0.4); HEMATOCRIT 40.3 % (39.0-51.0); HEMO FLAGS DIFF FINAL; LYMPH % 21.8 % (9.0-44.0); LYMPHOCYTE # 1.9 TH/MM3 (1.0-4.8); MEAN CELL VOLUME 96.2 FL (80.0-100.0); MEAN CORPUSCULAR HGB CONC 34.3 % (32.0-36.0); MONO % 8.5 % (0.0-8.0); NEUT % 65.3 % (16.0-70.0); PLATELET COUNT 270 TH/MM3 (150-450); RED BLOOD COUNT 4.18 MIL/MM3 (4.50-5.90); RED CELL DISTRIBUTION WIDTH 13.2 % (11.6-17.2); WHITE BLOOD COUNT 8.6 TH/MM3 (4.0-11.0)
[2016-06-03 07:44] LABS: ANION GAP 7 MEQ/L (5-15); BICARBONATE 32.9 MEQ/L (21.0-32.0); BLOOD UREA NITROGEN 13 MG/DL (7-18)
[2016-06-03 07:45] LABS: APTT (PATIENT) 23.1 SEC (24.3-30.1); INTERNATIONAL NORMALIZED RATIO 0.9 RATIO; PROTHROMBIN TIME - PATIENT 10.1 SEC (9.8-11.6)
[2016-06-03 07:47] LABS: ALT (GPT) 108 U/L (12-78); AST (GOT) 49 U/L (15-37); GLOMERULAR FILTRATION RATE 96 ML/MIN (>89)
[2016-06-03 07:49] LABS: TOTAL BILIRUBIN ADULT 0.5 MG/DL (0.2-1.0)
[2016-06-03 07:50] LABS: ALKALINE PHOSPHATASE 58 U/L (45-117)
[2016-06-03] MEDS ORDERED: FURO1TAB62 PO (08:10)
[2016-06-03] MEDS ORDERED: POTA-163 PO (08:10)
[2016-06-03 08:14] VITALS: BP 164/109; PULSE 86; RESP 18; O2SAT 99
[2016-06-03] MEDS ORDERED: FUROSEMIDE 20 MG/2 ML VIAL IV PUSH ONE (08:15)
== END 2016-06-03 08:32 | disposition home or self-care (01) ==
LOC: PHED 06:26
DX: D69.2 Other nonthrombocytopenic purpura (principal); J44.9 Chronic obstructive pulmonary disease, unspecified; I10 Essential (primary) hypertension; F41.9 Anxiety disorder, unspecified; Z87.891 Personal history of nicotine dependence; Z99.81 Dependence on supplemental oxygen
CPT/HCPCS: 80053; 83880; 85025; 85610; 85730; 94664; 96374; 99284; J1940; J7613

== ENCOUNTER → 2016-06-21 | Outpatient (CLI) | payer OTHER ==
[~2016-06-21] MED LIST changes: +FURO1TAB62 PO; +POTA-163 PO
[2016-06-21 10:22] LABS: BLOOD GAS BASE EXCESS -2.8 mmol/L (-2-2); BLOOD GAS CARBOXYHEMOGLOBIN 6.3 % (0-4); BLOOD GAS HCO3 21 mmol/L (22-26); BLOOD GAS METHEMOGLOBIN 1.2 % (0-2); BLOOD GAS O2 HGB SATURATION 91 % (90-100); BLOOD GAS OXYGEN CONTENT 18.5 Vol % (12.0-20.0); BLOOD GAS PCO2 32 mmHG (38-42); BLOOD GAS PO2 93 mmHG (61-120); BLOOD GAS TOTAL HGB 14.4 G/DL (12.0-16.0); CRITICAL VALUE YES; FIO2 21 %; TEMP CORR TO 98.6
[2016-06-21 10:23] LABS: DRAW SITE RT RADIAL; NUMBER OF ARTERIAL PUNCTURES 1; STAT NO; ULNAR PULSE PRESENT
--- NOTE | 2016-06-26 11:09 | RSPPFT ---
DATE OF PROCEDURE: 06/21/16 COMMENTS: Spirometry shows FVC of 2.9 at 84% of predicted, FEV1 of 1.1 at 49%, FEV1/FVC ratio is decreased. Flow is decreased at FEF 25, FEF 50, FEF 75 and FEF 25-75. There is no significant response after bronchodilator treatment. Lung volumes show residual volume is increased. TLC is increased. Diffusion capacity is mildly decreased. Flow volume loop indicates an obstructive pattern. Room air arterial blood gases show pH of 7.4, PCO2 of 32, PO2 of 93, BiCarb of 21. 6-minute walk test shows no de-saturation. IMPRESSION: 1. Moderately severe obstructive lung disease. 2. No response after bronchodilator treatment. 3. Lung volumes show hyperinflation and air trapping. 4. There is a mild decreased in diffusion capacity. 5. Blood gases show normal oxygenation. 6. No de-saturation found on 6-minute walk test.
== END ==
LOC: PHRSP 07:46
PROVIDERS: ATTEND Specialist
DX: J44.9 Chronic obstructive pulmonary disease, unspecified (principal)
CPT/HCPCS: 36600; 82805; 94060; 94620; 94726; 94729

== ENCOUNTER → 2016-11-08 | Outpatient (CLI) | payer OTHER ==
[~2016-11-08] MED LIST changes: +ASPI81CH CHEW; +AZIT250T3 PO; +GABA600T PO; +LORA-373 PO; +MELO7.5T4 PO; +OXYGENDME NAS.CANULA; +PANT40TA3 PO; +PRED20 PO; +PROP20TA3 PO
== END ==
LOC: CLAB 10:27
PROVIDERS: ATTEND Specialist
DX: B18.2 Chronic viral hepatitis C (principal); R79.9 Abnormal finding of blood chemistry, unspecified; I10 Essential (primary) hypertension; Z28.3 Underimmunization status; Z20.828 Contact with and (suspected) exposure to other viral communicable diseases
CPT/HCPCS: 36415; 82140

== ENCOUNTER 2016-11-11 03:04 | Inpatient (IN) | payer OTHER ==
[~2016-11-11] VITALS: Ht 162.6 cm; Wt 57.3 kg
[2016-11-11] VITALS (9 sets, daily range): BP systolic 112–155; BP diastolic 78–104; PULSE 87–97; RESP 16–22; TEMP 97.7–98.1; O2SAT 95–97
[~2016-11-11 03:04] MED LIST changes: -ASPI81CH CHEW; -AZIT250T3 PO; -GABA600T PO; -LORA-373 PO; -MELO7.5T4 PO; -OXYGENDME NAS.CANULA; -PANT40TA3 PO; -PRED20 PO; -PROP20TA3 PO
[2016-11-11] MEDS ORDERED: methylPREDNISolone SOD SUCC 125 MG/2 ML VIAL IVP ONE (03:15)
[2016-11-11] MEDS ORDERED: SODIUM CHLORIDE 0.9% FLUSH 10 ML FLUSH IVF PRN ×2 (03:15→04:45)
[2016-11-11] MEDS: RESP: ALBUTEROL 2.5 MG/IPRATROPIUM 0.5 MG NEB (SCH) INH (03:24)
[2016-11-11 03:33] LABS: AUTOMATED NEUTROPHIL # 10.3 TH/MM3 (1.8-7.7); BASOPHIL # 0.3 TH/MM3 (0-0.2); BASOPHIL % 1.9 % (0.0-2.0); EOSINOPHIL # 0.2 TH/MM3 (0-0.4); EOSINOPHIL % 1.3 % (0.0-4.0); HEMATOCRIT 46.1 % (39.0-51.0); HEMO FLAGS DIFF FINAL; LYMPH % 10.8 % (9.0-44.0); LYMPHOCYTE # 1.5 TH/MM3 (1.0-4.8); MEAN CELL VOLUME 96.1 FL (80.0-100.0); MEAN CORPUSCULAR HEMOGLOBIN 32.4 PG (27.0-34.0); MEAN CORPUSCULAR HGB CONC 33.8 % (32.0-36.0); MONO % 9.9 % (0.0-8.0); NEUT % 76.1 % (16.0-70.0); PLATELET COUNT 340 TH/MM3 (150-450); WHITE BLOOD COUNT 13.7 TH/MM3 (4.0-11.0)
[2016-11-11] MEDS ORDERED: ONDANSETRON HCL 4 MG/2 ML VIAL IV PUSH ONE (03:45)
[2016-11-11] MEDS ORDERED: ASPI81CH CHEW (04:01)
[2016-11-11] MEDS ORDERED: GABA600T PO (04:01)
[2016-11-11] MEDS ORDERED: MELO7.5T4 PO (04:01)
[2016-11-11 04:07] LABS: CHLORIDE 94 MEQ/L (98-107); POTASSIUM 4.2 MEQ/L (3.5-5.1); SODIUM (NA) 130 MEQ/L (136-145)
[2016-11-11 04:10] LABS: ANION GAP 12 MEQ/L (5-15); BICARBONATE 24.4 MEQ/L (21.0-32.0); BLOOD UREA NITROGEN 8 MG/DL (7-18); MAGNESIUM 2.3 MG/DL (1.5-2.5)
[2016-11-11 04:13] LABS: GLOMERULAR FILTRATION RATE 96 ML/MIN (>89)
--- NOTE | 2016-11-11 04:14 | PD ---
HPI Chief Complaint: Respiratory Symptoms Time Seen by Provider: 03:13 Travel History International Travel<30 days: No Contact w/Intl Traveler<30days: No Traveled to known affect area: No History of Present Illness HPI 56 year-old male presents to the emergency department by private transportation for complaint of shortness of breath worsening this evening. Patient has used his home nebulizer treatment without relief. No chest pain but has noted tightness associated with shortness of breath. Patient is a cough productive of thick green sputum. No fever or chills. Prescription medications at home are not providing symptomatic relief. Patient also has history of hypertension as well as COPD and continues to smoke cigarettes. Patient denies fever or chills. PFSH Past Medical History Narrative Medical COPD anxiety hypertension tobaccoism; nurse interviewed Anxiety: Yes Cancer: No COPD: Yes Diminished Hearing: No Endocrine: No Gastrointestinal Disorders: Yes Genitourinary: No Heparin Induced Thrombocytopen: No Hypertension: Yes Immune Disorder: No Implanted Vascular Access Dvce: No Musculoskeletal: Yes (cervical DISC HERNIATIONS) Neurologic: No Psychiatric: Yes Reproductive: No Respiratory: Yes Sickle Cell Disease: No Tetanus Vaccination: < 5 Years Influenza Vaccination: No Past Surgical History Abdominal Surgery: Yes (HERNIA REPAIR) Social History Alcohol Use: Yes (OCC) Tobacco Use: Yes (QUIT AFTER LAST ADMISSION, USES E-CIG) Substance Use: No Allergies-Medications (Allergen,Severity, Reaction): Coded Allergies: No Known Allergies (Verified , 11/11/16) Reported Meds & Prescriptions Reported Meds & Active Scripts Active Lisinopril 20 Mg Tab 20 Mg PO DAILY Reported Aspirin 81 Mg Chew 81 Mg CHEW DAILY Meloxicam 7.5 Mg Tab 7.5 Mg PO DAILY Gabapentin 600 Mg Tab 600 Mg PO BID Ipratropium Neb (Ipratropium Thompson) 0.5 Mg/2.5 Ml Amp 0.5 Mg NEB Q6HR NEB Albuterol Neb (Albuterol Sulfate) 2.5 Mg/0.5 Ml Neb 2.5 Mg NEB Q6HR NEB Note: The Albuterol Sulfate Inhalation Solution is concentrated and must be diluted. Read complete instructions carefully before using. Proair Hfa 8.5 GM Inh (Albuterol Sulfate) 90 Mcg/Act Aer 2 Puff INH Q4-6H PRN 108 mcg/actuation Review of Systems Except as stated in HPI: all other systems reviewed are Neg General / Constitutional: No: Fever, Chills HENT: No: Congestion Cardiovascular: Positive: Chest Pain or Discomfort Respiratory: Positive: Shortness of Breath, Wheezing Gastrointestinal: Positive: Nausea, No: Abdominal Pain Genitourinary: No: Flank Pain Musculoskeletal: No: Edema Skin: No Rash Neurologic: No: Weakness Psychiatric: Positive: Anxiety Hematologic/Lymphatic: No: Lymph Node Enlargement Physical Exam Narrative GENERAL: Well-developed well-nourished male in obvious respiratory distress with work of breathing SKIN: Warm and dry. HEAD: Normocephalic. EYES: No scleral icterus. No injection or drainage. NECK: Supple, trachea midline. No JVD or lymphadenopathy. CARDIOVASCULAR: Increased Regular rate and rhythm without murmurs, gallops, or rubs. RESPIRATORY: Breath sounds equal bilaterally diffuse wheezing; accessory muscle use. GASTROINTESTINAL: Abdomen soft, non-tender, nondistended. MUSCULOSKELETAL: No cyanosis, or edema. BACK: Nontender without obvious deformity. No CVA tenderness. Data Data Last Documented VS Vital Signs Date Time Temp Pulse Resp B/P (MAP) Pulse Ox O2 Delivery O2 Flow Rate FiO2 11/11/16 03:35 97 22 96 Room Air 11/11/16 03:15 97.8 145/102 (116) Orders Orders Complete Blood Count With Diff (11/11/16 03:13) Basic Metabolic Panel (Bmp) (11/11/16 03:13) B-Type Natriuretic Peptide (11/11/16 03:13) Act Partial Throm Time (Ptt) (11/11/16 03:13) Prothrombin Time / Inr (Pt) (11/11/16 03:13) Magnesium (Mg) (11/11/16 03:13) Troponin I (11/11/16 03:13) Iv Access Insert/Monitor (11/11/16 03:13) Electrocardiogram (11/11/16 03:13) Ecg Monitoring (11/11/16 03:13) Oximetry (11/11/16 03:13) Oxygen Administration (11/11/16 03:13) Chest, Single Ap (11/11/16 03:13) Sodium Chloride 0.9% Flush (Ns Flush) (11/11/16 03:15) Methylprednisolone So Succ Inj (Solumedr (11/11/16 03:15) Albuterol-Ipratropium Neb (Duoneb Neb) (11/11/16 03:15) Alcohol (Ethanol) (11/11/16 03:15) Ondansetron Inj (Zofran Inj) (11/11/16 03:45) Ceftriaxone Inj (Rocephin Inj) (11/11/16 04:45) Azithromycin Inj (Zithromax Inj) (11/11/16 04:45) Admit Order (Ed Use Only) (11/11/16 ) ^ Saline Lock (11/11/16 04:35) Resp Oxygen Xavi C Titrat 1-4 L (11/11/16 ) Notify Dr: Other (11/11/16 04:35) Sodium Chloride 0.9% Flush (Ns Flush) (11/11/16 09:00) Sodium Chloride 0.9% Flush (Ns Flush) (11/11/16 04:45) Sodium Chlor 0.9% 1000 Ml Inj (Ns 1000 M (11/11/16 04:45) Sodium Chlorid 0.9% 500 Ml Inj (Ns 500 M (11/11/16 04:45) Labs Laboratory Tests Test 11/11/16 03:15 11/11/16 03:50 White Blood Count 13.7 TH/MM3 Red Blood Count 4.80 MIL/MM3 Hemoglobin 15.6 GM/DL Hematocrit 46.1 % Mean Corpuscular Volume 96.1 FL Mean Corpuscular Hemoglobin 32.4 PG Mean Corpuscular Hemoglobin Concent 33.8 % Red Cell Distribution Width 13.0 % Platelet Count 340 TH/MM3 Mean Platelet Volume 9.4 FL Neutrophils (%) (Auto) 76.1 % Lymphocytes (%) (Auto) 10.8 % Monocytes (%) (Auto) 9.9 % Eosinophils (%) (Auto) 1.3 % Basophils (%) (Auto) 1.9 % Neutrophils # (Auto) 10.3 TH/MM3 Lymphocytes # (Auto) 1.5 TH/MM3 Monocytes # (Auto) 1.4 TH/MM3 Eosinophils # (Auto) 0.2 TH/MM3 Basophils # (Auto) 0.3 TH/MM3 CBC Comment DIFF FINAL Differential Comment Prothrombin Time 11.0 SEC Prothromb Time International Ratio 1.0 RATIO Activated Partial Thromboplast Time 30.0 SEC B-Type Natriuretic Peptide 57 PG/ML Blood Urea Nitrogen 8 MG/DL Creatinine 0.82 MG/DL Random Glucose 74 MG/DL Calcium Level 9.0 MG/DL Magnesium Level 2.3 MG/DL Sodium Level 130 MEQ/L Potassium Level 4.2 MEQ/L Chloride Level 94 MEQ/L Carbon Dioxide Level 24.4 MEQ/L Anion Gap 12 MEQ/L Estimat Glomerular Filtration Rate 96 ML/MIN Troponin I LESS THAN 0.02 NG/ML Ethyl Alcohol Level LESS THAN 3 MG/DL MDM Medical Decision Making Medical Screen Exam Complete: Yes Emergency Medical Condition: Yes Medical Record Reviewed: Yes Interpretation(s) EKG sinus rhythm rate [address] elevation or injury pattern change noted artifact is present at baseline Chest x-ray: No lobar infiltrate no effusion no vascular congestion no pneumothorax CBC with automated differential total white cell count is elevated 13,700 with 76% neutrophils Chemistries mild hyponatremia 130 values otherwise grossly normal range BNP 57, not elevated coagulations within normal limits troponin I: alc: Differential Diagnosis Dyspnea, exacerbation COPD, pneumonia, CHF, PE, arrhythmia Narrative Course Patient placed on buyer grain IV access obtained specimens collected and sent for resulting patient given Solu-Medrol and DuoNeb updrafts 3 Patient given IV fluids Patient complains of nausea given Zofran Patient meets SIRS criteria but does not look toxic or septic however based on the physiologic response to exacerbation COPD heart rate and respiratory rate elevated and possible stress demargination and hydration status reflective of his white count 13,000 however will presumptively cover with IV antibiotic for clinical bronchitis. Sepsis Criteria SIRS Criteria (2 or more): Heart rate over 90, RR > 20 or PaCO2 < 32, WBC > 45870, < 4000 or > 10% bands Physician Communication Physician Communication call placed to [facility] Diagnosis Primary Impression: COPD exacerbation Admitting Information Admitting Physician Requests: Admit America Law MD Nov 11, 2016 04:14
[2016-11-11 04:18] LABS: ALCOHOL LESS THAN 3 MG/DL (0-5)
--- NOTE | 2016-11-11 04:18 | RADRPT ---
EXAM DATE/TIME: 11/11/2016 03:35 [place] COMPARISON: CHEST PA & LAT, May 29, 2016, 8:19. INDICATIONS : Shortness of breath. MEDICAL HISTORY : Chronic obstructive pulmonary disease. Hypertension SURGICAL HISTORY : None. ENCOUNTER: Initial ACUITY: 1 day PAIN SCORE: 0/10 LOCATION: Bilateral chest FINDINGS: A single view of the chest demonstrates the lungs to be symmetrically aerated without evidence of mas s, infiltrate or effusion. Hyperexpanded lungs again noted. The cardiomediastinal contours are unrem arkable. Osseous structures are intact. CONCLUSION: No evidence of acute cardiopulmonary disease. Shaheed Fuentes MD on November 11, 2016 at 4:16 Board Certified Radiologist. This report was verified electronically.
[2016-11-11] MEDS ORDERED: SODIUM CHLORID 0.9% 500 ML INJ 500 ML IV ONE (04:45)
[2016-11-11] MEDS ORDERED: AZITHROMYCIN INJ 500 MG in SODIUM CHLOR 0.9% 250 ML INJ 250 ML IV ONE (04:45)
[2016-11-11] MEDS ORDERED: cefTRIAXone INJ 1,000 MG in SODIUM CHLORIDE 0.9% INJ 100 ML IV ONE (04:45)
[2016-11-11] MEDS: SODIUM CHLOR 0.9% 1000 ML INJ 1,000 ML IV SCH ×3 (06:12→22:20)
--- NOTE | 2016-11-11 08:04 | HHI.HP ---
HPI Service [facility] Hospitalists Primary Care Physician Jan Zelaya MD Admission Diagnosis exac copd; bronchitis; h/o htn Chief Complaint: sob, cough with white phlegm, wheeze Travel History International Travel<30 Days: No Contact w/Intl Traveler <30 Da: No Traveled to Known Affected Are: No History of Present Illness 56 year-old male known to me from previous admission for COPD exacerbation presents to the emergency department by private transportation for complaint of shortness of breath worsening this evening. Patient has used his home nebulizer treatment without relief. No chest pain but has noted tightness associated with shortness of breath. Patient is a cough productive of thick white sputum. No fever or chills. He has noted increased cough over the last 2 -1/2 days. No foreign travel or unusual exposures. No hemoptysis. Prescription medications at home are not providing symptomatic relief. Patient also has history of hypertension as well as COPD and continues to smoke cigarettes. Patient denies fever or chills. He has been given nebulizers as well as IV steroids here and seems to be breathing more comfortably now on my exam. His main complaint on my exam is 1 of hunger and he requests a menu. He does note that he's had several loose stools starting last evening. Denies any hematochezia or melena. Review of Systems Constitutional: DENIES: Diaphoretic episodes, Fatigue, Fever, Weight gain, Weight loss, Chills, Dizziness, Change in appetite, Night Sweats Endocrine: DENIES: Heat/cold intolerance, Polydipsia, Polyuria, Polyphagia Eyes: DENIES: Blurred vision, Diplopia, Eye inflammation, Eye pain, Vision loss , Photosensitivity, Double Vision Ears, nose, mouth, throat: DENIES: Tinnitus, Hearing loss, Vertigo, Nasal discharge, Oral lesions, Throat pain, Hoarseness, Ear Pain, Running Nose, Epistaxis, Sinus Pain, Toothache, Odynophagia Respiratory: COMPLAINS OF: Cough, Wheezing, Sputum production, Shortness of breath, DENIES: Apneas, Snoring, Hemoptysis Cardiovascular: DENIES: Chest pain, Palpitations, Syncope, Dyspnea on Exertion , PND, Lower Extremity Edema, Orthopnea, Claudication Gastrointestinal: COMPLAINS OF: Diarrhea, DENIES: Abdominal pain, Black stools , Bloody stools, BRB per rectum, Constipation, GERD, Nausea, Reflux, Vomiting, Difficulty Swallowing, Anorexia, See HPI Musculoskeletal: COMPLAINS OF: Joint pain Hematologic/lymphatic: DENIES: Bruising, Lymphadenopathy Immunologic/allergic: DENIES: Eczema, Urticaria Neurologic: DENIES: Abnormal gait, Headache, Localized weakness, Paresthesias, Seizures, Speech Problems, Tremor, Poor Balance Psychiatric: COMPLAINS OF: Anxiety Past Family Social History Past Medical History COPD exac cervical DDD [facility] smoker HTN Chronic hepatitis C Past Surgical History Past Surgical History right inguinal hernia rpr Reported Medications Lisinopril 20 Mg Tab 20 Mg PO DAILY Aspirin 81 Mg Chew 81 Mg CHEW DAILY Meloxicam 7.5 Mg Tab 7.5 Mg PO DAILY Gabapentin 600 Mg Tab 600 Mg PO BID Ipratropium Neb (Ipratropium Axis) 0.5 Mg/2.5 Ml Amp 0.5 Mg NEB Q6HR NEB Albuterol Neb (Albuterol Sulfate) 2.5 Mg/0.5 Ml Neb 2.5 Mg NEB Q6HR NEB Note: The Albuterol Sulfate Inhalation Solution is concentrated and must be diluted. Read complete instructions carefully before using. Proair Hfa 8.5 GM Inh (Albuterol Sulfate) 90 Mcg/Act Aer 2 Puff INH Q4-6H PRN 108 mcg/actuation Allergies: Coded Allergies: No Known Allergies (Verified , 11/11/16) Family History Father at 73 with copd complications Mother at 74 due to stroke Social History Generally Smokes 1ppd and has done so for 40 yrs, but has not smoked in the last 5 days. Occasionally drinks EtOH, but did drink heavier in the past. Has not had any alcohol in the last 5-6 days. Denies illicit drug use. 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 Physical Exam Vital Signs Vital Signs Date Time Temp Pulse Resp B/P (MAP) Pulse Ox O2 Delivery O2 Flow Rate FiO2 11/11/16 05:53 96 21 11/11/16 05:34 89 20 96 11/11/16 04:53 89 20 112/78 (89) 96 Room Air 11/11/16 03:35 97 22 96 Room Air 11/11/16 03:15 97.8 97 22 145/102 (116) 96 11/11/16 03:15 96 Room Air 11/11/16 03:15 96 Room Air Physical Exam GENERAL: This is a well-nourished, well-developed patient, in no apparent distress. SKIN: Few purpuric lesions on forearms. Cool and dry. HEAD: Atraumatic. Normocephalic. No temporal or scalp tenderness. EYES: Pupils equal round and reactive. Extraocular motions intact. No scleral icterus. No injection or drainage. ENT: Nose without bleeding, purulent drainage or septal hematoma. Throat without erythema, tonsillar hypertrophy or exudate. Uvula midline. Airway patent. NECK: Trachea midline. No JVD or lymphadenopathy. Supple, nontender, no meningeal signs. CARDIOVASCULAR: Regular rate and rhythm without murmurs, gallops, or rubs. RESPIRATORY: Few expiratory wheezes noted bilaterally with fair air movement. Breath sounds equal bilaterally. No fine crackles. GASTROINTESTINAL: Abdomen soft, non-tender, slightly distended. No hepato- splenomegaly, or palpable masses. No guarding. Bowel sounds normal. MUSCULOSKELETAL: Extremities without clubbing, cyanosis, or edema. No joint tenderness, effusion, or edema noted. No calf tenderness. NEUROLOGICAL: Awake and alert. Cranial nerves II through XII intact. Motor and sensory grossly within normal limits. Five out of 5 muscle strength in all muscle groups. Normal speech. Laboratory Laboratory Tests Test 11/11/16 03:15 11/11/16 03:50 White Blood Count 13.7 Red Blood Count 4.80 Hemoglobin 15.6 Hematocrit 46.1 Mean Corpuscular Volume 96.1 Mean Corpuscular Hemoglobin 32.4 Mean Corpuscular Hemoglobin Concent 33.8 Red Cell Distribution Width 13.0 Platelet Count 340 Mean Platelet Volume 9.4 Neutrophils (%) (Auto) 76.1 Lymphocytes (%) (Auto) 10.8 Monocytes (%) (Auto) 9.9 Eosinophils (%) (Auto) 1.3 Basophils (%) (Auto) 1.9 Neutrophils # (Auto) 10.3 Lymphocytes # (Auto) 1.5 Monocytes # (Auto) 1.4 Eosinophils # (Auto) 0.2 Basophils # (Auto) 0.3 CBC Comment DIFF FINAL Differential Comment Prothrombin Time 11.0 Prothromb Time International Ratio 1.0 Activated Partial Thromboplast Time 30.0 B-Type Natriuretic Peptide 57 Blood Urea Nitrogen 8 Creatinine 0.82 Random Glucose 74 Calcium Level 9.0 Magnesium Level 2.3 Sodium Level 130 Potassium Level 4.2 Chloride Level 94 Carbon Dioxide Level 24.4 Anion Gap 12 Estimat Glomerular Filtration Rate 96 Troponin I LESS THAN 0.02 Ethyl Alcohol Level LESS THAN 3 Result Diagram: 11/11/1631411/11/16 035 Imaging Last 72 hours Impressions Chest X-Ray 11/11/16312 Signed Impressions: Service Date/Time: Friday, November 11, 2016 03:35 - CONCLUSION: No evidence of acute cardiopulmonary disease. MD Temitope Somers VTE Risk Assessment [place]ie VTE Risk Assessment: Mod/High Risk (score >= 2) Caprini Risk Assessment Model Point Value = 1 Point Value = 2 Point Value = 3 Point Value = 5 Age 41-60 Minor surgery BMI > 25 kg/m2 Swollen legs Varicose veins or History of unexplained or recurrent spontaneous Oral contraceptives or hormone replacement Sepsis (< 1 month) Serious lung disease, including pneumonia (< 1 month) Abnormal pulmonary function Acute myocardial infarction Congestive heart failure (< 1 month) History of inflammatory bowel disease Medical patient at bed rest Age 61-74 Arthroscopic surgery Major open surgery (> 45 min) Laparoscopic surgery (> 45 min) Malignancy Confined to bed (> 72 hours) Immobilizing plaster cast Central venous access Age >= 75 History of VTE Family history of VTE Factor V Leiden Prothrombin [id number] Lupus anticoagulant Anticardiolipin antibodies Elevated serum homocysteine Heparin-induced thrombocytopenia Other congenital or acquired thrombophilia Stroke (< 1 month) Elective arthroplasty Hip, pelvis, or leg fracture Acute spinal cord injury (< 1 month) Prophylaxis Regimen Total Risk Factor Score Risk Level Prophylaxis Regimen 0-1 Low Early ambulation 2 Moderate Order ONE of the following: *Sequential Compression Device (SCD) *Heparin 5000 units SQ BID 3-4 Higher Order ONE of the following medications: *Heparin 5000 units SQ TID *Enoxaparin/Lovenox 40 mg SQ daily (WT < 150 kg, CrCl > 30 mL/min) *Enoxaparin/Lovenox 30 mg SQ daily (WT < 150 kg, CrCl > 10-29 mL/min) *Enoxaparin/Lovenox 30 mg SQ BID (WT < 150 kg, CrCl > 30 mL/min) AND/OR *Sequential Compression Device (SCD) 5 or more Highest Order ONE of the following medications: *Heparin 5000 units SQ TID (Preferred with Epidurals) *Enoxaparin/Lovenox 40 mg SQ daily (WT < 150 kg, CrCl > 30 mL/min) *Enoxaparin/Lovenox 30 mg SQ daily (WT < 150 kg, CrCl > 10-29 mL/min) *Enoxaparin/Lovenox 30 mg SQ BID (WT < 150 kg, CrCl > 30 mL/min) AND *Sequential Compression Device (SCD) Assessment and Plan Problem List: (1) COPD exacerbation ICD Codes: J44.1 - Chronic obstructive pulmonary disease with (acute) exacerbation Status: Acute Plan: Appears to have improved. Continue current therapy. Likely has underlying bronchitis. (2) HTN (hypertension), benign ICD Codes: I10 - Essential (primary) hypertension Status: Chronic Plan: BP improving with improved respiratory status. Continue current therapy. Assessment and Plan Discharge in 2 days. Code Status Full Discussed Condition With Patient and ER physician. Physician Certification 2 Midnight Certification Type: Admission for Inpatient Services Order for Inpatient Services The services are ordered in accordance with Medicare regulations or non- Medicare payer requirements, as applicable. In the case of services not specified as inpatient-only, they are appropriately provided as inpatient services in accordance with the 2-midnight benchmark. Estimated LOS (days): 2 days is the estimated time the patient will need to remain in the hospital, assuming treatment plan goals are met and no additional complications. Post-Hospital Plan: Home Jayden Adams MD PhD Nov 11, 2016 08:03
[2016-11-11] MEDS ORDERED: SODIUM CHLORIDE 0.9% FLUSH 10 ML FLUSH IV FLUSH PRN (08:15)
[2016-11-11] MEDS ORDERED: REMOVE OLD PATCH T-DERMAL SCH ×2 (09:00→21:00)
[2016-11-11] MEDS: SODIUM CHLORIDE 0.9% FLUSH 10 ML FLUSH IV FLUSH SCH ×2 (09:00→22:20)
[2016-11-11] MEDS ORDERED: ASPIRIN 81 MG CHEW TAB CHEW SCH (09:00)
[2016-11-11] MEDS ORDERED: LISINOPRIL 20 MG TAB PO SCH (09:00)
[2016-11-11] MEDS ORDERED: NICOTINE 21 MG/24 HR PATCH T-DERMAL SCH (09:00)
[2016-11-11] MEDS ORDERED: SODIUM CHLORIDE 0.9% FLUSH 10 ML FLUSH IV FLUSH SCH (09:00)
[2016-11-11] MEDS ORDERED: predniSONE 20 MG TAB PO SCH (09:00)
[2016-11-11] MEDS ORDERED: RESP: ALBUTEROL 2.5 MG/3 ML NEB (PRN) INH (09:00)
[2016-11-11] MEDS: GABAPENTIN 300 MG CAP PO SCH ×2 (09:27→22:19)
[2016-11-11] MEDS: RESP: ALBUTEROL 2.5 MG/IPRATROPIUM 0.5 MG NEB (SCH) NEB ×3 (09:41→21:39)
[2016-11-11] MEDS ORDERED: LORA-373 PO (09:46)
[2016-11-11] MEDS ORDERED: PROP20TA3 PO (09:46)
--- NOTE | 2016-11-11 13:31 | EKG ---
Date Performed: 11/11/2016 Time Performed: 03:22:24 PTAGE: 56 years EKG: Sinus rhythm NORMAL ECG PREVIOUS TRACING : 04/21/2015 08.11 Since prior tracing, sinus rate has slowed. DOCTOR: Brando Jackson Interpretating Date/Time 11/11/2016 13:30:31
[2016-11-11] MEDS ORDERED: PANTOPRAZOLE SOD 40 MG DELAYED RELEASE TAB PO SCH (14:00)
[2016-11-11] MEDS ORDERED: CALCIUM CARBONATE 500 MG CHEWABLE TAB PO PRN (14:00)
[2016-11-11] MEDS ORDERED: LORazepam 0.5 MG TAB PO PRN (20:15)
[2016-11-11] MEDS ORDERED: PROPRANOLOL HCL 20 MG TAB PO SCH (21:00)
[2016-11-12] VITALS: BP 123/78; PULSE 74; RESP 20; TEMP 97.5; O2SAT 97
[2016-11-12 04:00] VITALS: BP 126/86; PULSE 79; RESP 20; TEMP 97.2; O2SAT 96
[2016-11-12] MEDS: SODIUM CHLOR 0.9% 1000 ML INJ 1,000 ML IV SCH (04:00)
[2016-11-12] MEDS: RESP: ALBUTEROL 2.5 MG/IPRATROPIUM 0.5 MG NEB (SCH) NEB (04:03)
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
[2016-11-12] MEDS ORDERED: AZIT250T3 PO (07:46)
[2016-11-12] MEDS ORDERED: PRED20 PO (07:46)
[2016-11-12] MEDS ORDERED: PANT40TA3 PO (07:46)
[2016-11-12] MEDS ORDERED: OXYGENDME NAS.CANULA (07:46)
[2016-11-12] MEDS ORDERED: AZITHROMYCIN INJ 500 MG in SODIUM CHLOR 0.9% 250 ML INJ 250 ML IV SCH (08:00)
[2016-11-12] MEDS ORDERED: predniSONE 20 MG TAB PO SCH (09:00)
[2016-11-12] MEDS ORDERED: AZITHROMYCIN 250 MG TAB PO SCH (09:00)
[2016-11-12] MEDS ORDERED: PANTOPRAZOLE SOD 40 MG DELAYED RELEASE TAB PO SCH (09:00)
== END 2016-11-12 08:50 | disposition home or self-care (01) | DRG 192 ==
LOC: PHED 03:04 → PHEDA 04:36 → PH3A 05:25
PROVIDERS: ADMIT Family Medicine; ATTEND Family Medicine
DX: J44.1 Chronic obstructive pulmonary disease with (acute) exacerbation (principal); Z99.81 Dependence on supplemental oxygen; I10 Essential (primary) hypertension; B18.2 Chronic viral hepatitis C; M50.30 Other cervical disc degeneration, unspecified cervical region; F17.210 Nicotine dependence, cigarettes, uncomplicated; Z79.899 Other long term (current) drug therapy
CPT/HCPCS: 36415; 71010; 80048; 80307; 82140; 83735; 83880; 84484; 85025; 85610; 85730; 93005; 94640; 94664; 96374; 96375; J0456; J0696; J2405; J2930; J7030; J7040; J7050; J7512

== ENCOUNTER → 2017-03-01 | Outpatient (CLI) | payer OTHER ==
[~2017-03-01] MED LIST changes: +ASPI-516 CHEW; +AZIT250T3 PO; -FURO1TAB62 PO; +GABA600T PO; -HYDR-3516 PO; +LORA0.5T PO; +MELO7.5T27 PO; -NICO21DI2 TD; +OXYGENDME NAS.CANULA; +PANT40TA3 PO; -POTA-163 PO; +PRED20 PO; +PROP20TA3 PO; -SYMB160A INH; -VENL37.5 PO
== END ==
LOC: CLAB 08:14
PROVIDERS: ATTEND Specialist
DX: B18.2 Chronic viral hepatitis C (principal); J42 Unspecified chronic bronchitis; R00.0 Tachycardia, unspecified; F51.05 Insomnia due to other mental disorder; R79.9 Abnormal finding of blood chemistry, unspecified; E87.1 Hypo-osmolality and hyponatremia; I10 Essential (primary) hypertension; R06.02 Shortness of breath; M54.17 Radiculopathy, lumbosacral region; F17.200 Nicotine dependence, unspecified, uncomplicated; Z79.899 Other long term (current) drug therapy; Z20.828 Contact with and (suspected) exposure to other viral communicable diseases
CPT/HCPCS: 36415; 82140

== ENCOUNTER 2017-03-13 11:05 | Emergency (ER) | payer OTHER, MEDICAID ==
[~2017-03-13] VITALS: Ht 165.1 cm; Wt 56.1 kg
[2017-03-13 11:16] VITALS: BP 105/70; PULSE 107; RESP 18; TEMP 97.7; O2SAT 97
[2017-03-13] MEDS ORDERED: SODIUM CHLOR 0.9% 1000 ML INJ 1,000 ML IV ONE ×2 (13:15→14:15)
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
[2017-03-13 13:34] LABS: BASOPHIL # 0.3 TH/MM3 (0-0.2); BASOPHIL % 2.6 % (0.0-2.0); EOSINOPHIL % 0.3 % (0.0-4.0); HEMATOCRIT 47.8 % (39.0-51.0); HEMOGLOBIN 16.5 GM/DL (13.0-17.0); LYMPH % 7.6 % (9.0-44.0); LYMPHOCYTE # 0.9 TH/MM3 (1.0-4.8); MEAN CELL VOLUME 97.3 FL (80.0-100.0); MEAN CORPUSCULAR HEMOGLOBIN 33.5 PG (27.0-34.0); MEAN CORPUSCULAR HGB CONC 34.5 % (32.0-36.0); MEAN PLATELET VOLUME 9.1 FL (7.0-11.0); NEUT % 81.5 % (16.0-70.0); PLATELET COUNT 274 TH/MM3 (150-450); RED BLOOD COUNT 4.91 MIL/MM3 (4.50-5.90); RED CELL DISTRIBUTION WIDTH 13.7 % (11.6-17.2); WHITE BLOOD COUNT 12.2 TH/MM3 (4.0-11.0)
[2017-03-13 13:38] VITALS: BP 103/81; PULSE 84; RESP 16; O2SAT 95
[2017-03-13 13:49] LABS: INTERNATIONAL NORMALIZED RATIO 1.1 RATIO; PROTHROMBIN TIME - PATIENT 10.7 SEC (9.8-11.6)
[2017-03-13 13:59] LABS: ALBUMIN 3.6 GM/DL (3.4-5.0); ALKALINE PHOSPHATASE 123 U/L (45-117); ALT (GPT) 30 U/L (12-78); AST (GOT) 45 U/L (15-37); BICARBONATE 26.6 MEQ/L (21.0-32.0); BLOOD UREA NITROGEN 22 MG/DL (7-18); CALCIUM 9.2 MG/DL (8.5-10.1); CHLORIDE 86 MEQ/L (98-107); GLOMERULAR FILTRATION RATE 44 ML/MIN (>89); GLUCOSE,RANDOM 100 MG/DL (74-106); TOTAL BILIRUBIN ADULT 1.6 MG/DL (0.2-1.0); TOTAL PROTEIN 7.4 GM/DL (6.4-8.2)
[2017-03-13 14:00] LABS: SODIUM (NA) 124 MEQ/L (136-145)
[2017-03-13 14:09] LABS: BANDS 8 % (0-6); LYMPHOCYTES 7 % (9-44); MONOCYTES 10 % (0-8); POLYS (SEG NEUTROPHILS) 74 % (16-70)
--- NOTE | 2017-03-13 14:09 | RADRPT ---
EXAM DATE/TIME: 03/13/2017 13:44 [facility] COMPARISON: CHEST SINGLE AP, November 11, 2016, 3:35. INDICATIONS : Vomiting, weakness, fall last night left side rib pain. MEDICAL HISTORY : Chronic obstructive pulmonary disease. Hypertension SURGICAL HISTORY : None. ENCOUNTER: Initial ACUITY: 1 week PAIN SCORE: 0/10 LOCATION: Bilateral chest FINDINGS: A single view of the chest demonstrates the lungs to be symmetrically aerated without evidence of mas s, infiltrate or effusion. Calcified granuloma is again noted projected over the right midlung. There are overlying electrocardiogram leads. There is no pneumothorax. The cardiomediastinal contours are unremarkable. Osseous structures are intact. CONCLUSION: No acute disease. Manav Catalan MD on March 13, 2017 at 14:06 Board Certified Radiologist. This report was verified electronically.
[2017-03-13 14:10] LABS: ROULEAUX PRESENT (NORMAL)
[2017-03-13] MEDS ORDERED: ONDANSETRON HCL 4 MG/2 ML VIAL IV PUSH ONE (14:30)
[2017-03-13] MEDS ORDERED: ZOFR4TAB3 SL (14:30)
[2017-03-13 14:44] VITALS: BP 108/81
--- NOTE | 2017-03-13 16:09 | EKG ---
Date Performed: 03/13/2017 Time Performed: 13:17:57 PTAGE: 57 years EKG: Sinus rhythm NORMAL ECG PREVIOUS TRACING : 11/11/2016 03.22 Compared to prior tracing no significant change DOCTOR: Destiney Apple Interpretating Date/Time 03/13/2017 16:08:05
== END 2017-03-13 14:55 | disposition home or self-care (01) ==
LOC: PHED 11:05
DX: E86.0 Dehydration (principal); R11.2 Nausea with vomiting, unspecified; R53.1 Weakness; B19.20 Unspecified viral hepatitis C without hepatic coma; F41.9 Anxiety disorder, unspecified; J44.9 Chronic obstructive pulmonary disease, unspecified; I10 Essential (primary) hypertension; F17.200 Nicotine dependence, unspecified, uncomplicated; Z87.39 Personal history of other diseases of the musculoskeletal system and connective tissue; Z87.19 Personal history of other diseases of the digestive system
CPT/HCPCS: 71045; 80053; 83735; 85007; 85027; 85610; 85730; 93005; 96361; 96374; 99285; J2405; J7030

== ENCOUNTER 2017-06-01 19:07 | Emergency (ER) | payer MEDICAID, OTHER ==
[~2017-06-01 19:07] MED LIST changes: +ZOFR4TAB3 SL
[2017-06-01 19:19] VITALS: BP 169/103; PULSE 91; RESP 20; TEMP 98.2; O2SAT 100
[2017-06-01] MEDS ORDERED: SODIUM CHLOR 0.9% 1000 ML INJ 1,000 ML IV SCH ×2 (19:34→21:25)
[2017-06-01 19:45] VITALS: O2SAT 97
[2017-06-01] MEDS ORDERED: ONDANSETRON HCL 4 MG/2 ML VIAL IVP ONE (19:45)
[2017-06-01] MEDS ORDERED: ALUMINUM/MAGNESIUM/SIMETH 30 ML CUP PO ONE ×2 (19:45→21:30)
[2017-06-01] MEDS ORDERED: HYDROmorphone HCL PF 2 MG/ML VIAL IVS ONE (19:45)
[2017-06-01] MEDS ORDERED: LIDOCAINE VISCOUS 2% SOLN 15 ML UDC PO ONE ×2 (19:45→21:30)
[2017-06-01] MEDS ORDERED: SODIUM CHLORIDE 0.9% FLUSH 10 ML FLUSH IV FLUSH PRN (19:45)
[2017-06-01 20:12] LABS: AUTOMATED NEUTROPHIL # 5.7 TH/MM3 (1.8-7.7); BASOPHIL # 0.3 TH/MM3 (0-0.2); BASOPHIL % 3.7 % (0.0-2.0); EOSINOPHIL % 0.2 % (0.0-4.0); HEMATOCRIT 50.9 % (39.0-51.0); HEMOGLOBIN 16.9 GM/DL (13.0-17.0); LYMPH % 11.2 % (9.0-44.0); LYMPHOCYTE # 0.8 TH/MM3 (1.0-4.8); MEAN CELL VOLUME 102.8 FL (80.0-100.0); MEAN CORPUSCULAR HEMOGLOBIN 34.1 PG (27.0-34.0); MEAN CORPUSCULAR HGB CONC 33.2 % (32.0-36.0); MONO % 9.3 % (0.0-8.0); MONOCYTE # 0.7 TH/MM3 (0-0.9); NEUT % 75.6 % (16.0-70.0); PLATELET COUNT 184 TH/MM3 (150-450); RED BLOOD COUNT 4.95 MIL/MM3 (4.50-5.90); RED CELL DISTRIBUTION WIDTH 12.6 % (11.6-17.2); WHITE BLOOD COUNT 7.5 TH/MM3 (4.0-11.0)
[2017-06-01 20:13] LABS: CHLORIDE 94 MEQ/L (98-107); SODIUM (NA) 129 MEQ/L (136-145)
[2017-06-01 20:16] LABS: CALCIUM 9.7 MG/DL (8.5-10.1)
[2017-06-01 20:17] LABS: ALBUMIN 3.6 GM/DL (3.4-5.0); BICARBONATE 27.8 MEQ/L (21.0-32.0); BLOOD UREA NITROGEN 9 MG/DL (7-18); GLUCOSE,RANDOM 111 MG/DL (74-106); PROTHROMBIN TIME - PATIENT 10.2 SEC (9.8-11.6)
[2017-06-01 20:19] LABS: ALT (GPT) 45 U/L (12-78); AST (GOT) 82 U/L (15-37)
[2017-06-01 20:20] LABS: CREATININE 0.94 MG/DL (0.60-1.30); GLOMERULAR FILTRATION RATE 82 ML/MIN (>89)
[2017-06-01 20:21] LABS: TOTAL PROTEIN 8.6 GM/DL (6.4-8.2)
[2017-06-01 20:22] LABS: ALKALINE PHOSPHATASE 98 U/L (45-117)
[2017-06-01 20:30] VITALS: BP 158/98; PULSE 97; RESP 18; TEMP 98.1; O2SAT 98
[2017-06-01] MEDS ORDERED: SODIUM CHLOR 0.9% 1000 ML INJ 1,000 ML IV ONE (20:30)
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
[2017-06-01] MEDS ORDERED: IOHEXOL 350 MG/ML 10 ML VIAL (for RAD DIAG) IVCONTRAST ONE (20:48)
--- NOTE | 2017-06-01 21:19 | RADRPT ---
EXAM DATE/TIME: 06/01/2017 20:42 [facility] COMPARISON: No previous studies available for comparison. INDICATIONS : Diffuse abdominal pain with nausea, vomiting and diarrhea. IV CONTRAST: 90 cc Omnipaque 350 (iohexol) IV ORAL CONTRAST: No oral contrast ingested. RADIATION DOSE: 5.91 CTDIvol (mGy) MEDICAL HISTORY : Hypertension. Chronic obstructive pulmonary disease. Hepatitis C. SURGICAL HISTORY : Hernia repair. ENCOUNTER: Initial ACUITY: 2 days PAIN SCALE: 8/10 LOCATION: Bilateral pelvis abdomen TECHNIQUE: Volumetric scanning of the abdomen and pelvis was performed. Using automated exposure control and ad justment of the mA and/or kV according to patient size, radiation dose was kept as low as reasonably achievable to obtain optimal diagnostic quality images. DICOM format image data is available electro nically for review and comparison. FINDINGS: LOWER LUNGS: The visualized lower lungs are clear. LIVER: There is decreased density seen in the liver. No focal hepatic lesion is seen. SPLEEN: Normal size without lesion. Calcified granulomas are seen. PANCREAS: Within normal limits. KIDNEYS: Normal in size and shape. There is no mass, stone or hydronephrosis. ADRENAL GLANDS: Within normal limits. VASCULAR: There is no aortic aneurysm. Atherosclerotic calcifications are present. BOWEL/MESENTERY: The stomach, small bowel, and colon demonstrate no acute abnormality. There is no free intraperitone al air or fluid. ABDOMINAL WALL: Within normal limits. RETROPERITONEUM: There is no lymphadenopathy. BLADDER: No wall thickening or mass. REPRODUCTIVE: Within normal limits. INGUINAL: There is no lymphadenopathy or hernia. MUSCULOSKELETAL: There is degenerative change in the lumbar spine. CONCLUSION: 1. No acute abnormality seen. 2. Hepatic steatosis. Shaheed Jeffers MD on June 01, 2017 at 21:15 Board Certified Radiologist. This report was verified electronically.
[2017-06-01 21:36] LABS: BLOOD, URINE TRACE (NEG); GLUCOSE,URINE NEG (NEG); KETONE, URINE 15 mg/dL (NEG); NITRITE,URINE NEG (NEG); PH, URINE 6.5 (5.0-8.5); URINE LEUKOCYTE ESTERASE NEG (NEG)
[2017-06-01 21:42] LABS: URINE COLOR ORANGE (YELLW/STRAW)
[2017-06-01 21:44] LABS: BILIRUBIN, URINE NEG (NEG)
[2017-06-01 21:46] LABS: MUCUS URINE MOD /lpf (OCC); RBC, URINE 0-3 /hpf (0-3); SQUAMOUS EPITHELIAL CELL URINE 0-5 /hpf (0-5); WBC, URINE 0-2 /hpf (0-5)
[2017-06-01 22:30] LABS: ALKALINE PHOSPHATASE 77 U/L (45-117); ALT (GPT) 31 U/L (12-78); AST (GOT) 32 U/L (15-37); BICARBONATE 24.1 MEQ/L (21.0-32.0); BLOOD UREA NITROGEN 8 MG/DL (7-18); CALCIUM 8.1 MG/DL (8.5-10.1); CHLORIDE 102 MEQ/L (98-107); CREATININE 0.71 MG/DL (0.60-1.30); GLOMERULAR FILTRATION RATE 114 ML/MIN (>89); GLUCOSE,RANDOM 108 MG/DL (74-106); SODIUM (NA) 133 MEQ/L (136-145); TOTAL BILIRUBIN ADULT 0.6 MG/DL (0.2-1.0); TOTAL PROTEIN 6.3 GM/DL (6.4-8.2)
[2017-06-01] MEDS ORDERED: ZOFR4TAB3 SL (22:38)
[2017-06-01 22:41] VITALS: BP 148/92; PULSE 86; RESP 18; TEMP 98.2; O2SAT 97
[2017-06-01] MEDS ORDERED: GAVISUS2 PO (22:43)
--- NOTE | 2017-06-02 14:38 | EKG ---
Date Performed: 06/01/2017 Time Performed: 20:02:06 PTAGE: 57 years EKG: Sinus rhythm BORDERLINE LEFT AXIS DEVIATION BORDERLINE ECG PREVIOUS TRACING : 03/13/2017 13.17 Since the previous tracing, no significant change noted DOCTOR: Cali Canales Interpretating Date/Time 06/02/2017 14:36:54
== END 2017-06-01 22:54 | disposition home or self-care (01) ==
LOC: PHED 19:07
DX: R11.2 Nausea with vomiting, unspecified (principal); R19.7 Diarrhea, unspecified; R10.13 Epigastric pain; K76.0 Fatty (change of) liver, not elsewhere classified; F41.9 Anxiety disorder, unspecified; J44.9 Chronic obstructive pulmonary disease, unspecified; I10 Essential (primary) hypertension; F17.200 Nicotine dependence, unspecified, uncomplicated; Z86.19 Personal history of other infectious and parasitic diseases
CPT/HCPCS: 74177; 80053; 81001; 83605; 83690; 85025; 85610; 85730; 93005; 96361; 96374; 96375; 99285; J1170; J2405; J7030; Q9967

== ENCOUNTER 2017-07-06 08:26 | Inpatient (IN) | payer MEDICAID ==
[~2017-07-06] VITALS: Ht 170.2 cm; Wt 54.2 kg
[2017-07-06] VITALS (9 sets, daily range): BP systolic 117–176; BP diastolic 59–108; PULSE 76–104; RESP 15–20; TEMP 96.8–100.2; O2SAT 92–99
[~2017-07-06 08:26] MED LIST changes: +GAVISUS2 PO
--- NOTE | 2017-07-06 09:07 | PD ---
HPI Chief Complaint: GI Complaint Time Seen by Provider: 09:01 Travel History International Travel<30 days: No Contact w/Intl Traveler<30days: No Traveled to known affect area: No History of Present Illness HPI This 57-year-old male is here with complaint of vomiting and diarrhea. He says he been having these symptoms throughout the night. He had a similar episode at the end of May and was seen here. He says he responded very well to Zofran. He had a CT scan of the abdomen and pelvis on that day which was negative. Denies any unusual foods. No one else has been at home. He has a history of hepatitis C for which she has been treated. He has had repeated bouts of vomiting PFSH Past Medical History Anxiety: Yes Cancer: No COPD: Yes Diminished Hearing: No Endocrine: No Gastrointestinal Disorders: Yes Genitourinary: No Hepatitis: Yes (HEP C) Heparin Induced Thrombocytopen: No Hypertension: Yes Immune Disorder: No Implanted Vascular Access Dvce: No Musculoskeletal: Yes (cervical DISC HERNIATIONS) Neurologic: No Psychiatric: Yes Reproductive: No Respiratory: Yes Sickle Cell Disease: No Influenza Vaccination: Yes ?: Not Past Surgical History Abdominal Surgery: Yes (HERNIA REPAIR) Social History Alcohol Use: Yes (OCC) Tobacco Use: Yes (/2 PPD) Substance Use: No (HX OF IV DRUGS - "MANY YEARS AGO") Allergies-Medications (Allergen,Severity, Reaction): Coded Allergies: No Known Allergies (Verified Adverse Reaction, Unknown, 07/06/17) Reported Meds & Prescriptions Reported Meds & Active Scripts Active Gaviscon Extra Strength R Liq (Aluminum Hydroxide-Mag Carb Liq) 508-475 Mg/10 Ml Susp 10-20 Ml PO QID PRN 7 Days Maximum 80 mL/24 hrs. Oxygen (O2) Device Liter GINA.CANULA CONTINUOUS PRN Oxygen Concentrator Portable Gaseous 2 L/min via Nasal Canula Continuous For 99 months Pantoprazole (Pantoprazole Sodium) 40 Mg Tab 40 Mg PO DAILY Lisinopril 20 Mg Tab 20 Mg PO DAILY Reported Propranolol (Propranolol HCl) 20 Mg Tab 20 Mg PO Q12HR Lorazepam 0.5 Mg Tab 0.5 Mg PO HS PRN Aspirin 81 Mg Chew 81 Mg CHEW DAILY Meloxicam 7.5 Mg Tab 15 Mg PO DAILY Gabapentin 600 Mg Tab 600 Mg PO BID Ipratropium Neb (Ipratropium [place]) 0.5 Mg/2.5 Ml Amp 0.5 Mg NEB Q6HR NEB Albuterol Neb (Albuterol Sulfate) 2.5 Mg/0.5 Ml Neb 2.5 Mg NEB Q6HR NEB Note: The Albuterol Sulfate Inhalation Solution is concentrated and must be diluted. Read complete instructions carefully before using. Proair Hfa 8.5 GM Inh (Albuterol Sulfate) 90 Mcg/Act Aer 2 Puff INH Q4-6H PRN 108 mcg/actuation Physical Exam Narrative GENERAL: Well-developed male SKIN: Focused skin assessment warm/dry. HEAD: Atraumatic. Normocephalic. EYES: Pupils equal and round. No scleral icterus. No injection or drainage. ENT: No nasal bleeding or discharge. Mucous membranes pink and moist. NECK: Trachea midline. No JVD. CARDIOVASCULAR: Regular rate and rhythm. No murmur appreciated. RESPIRATORY: No accessory muscle use. Clear to auscultation. Breath sounds equal bilaterally. GASTROINTESTINAL: Abdomen soft, there is epigastric tenderness nondistended. Hepatic and splenic margins not palpable. MUSCULOSKELETAL: No obvious deformities. No clubbing. No cyanosis. No edema. NEUROLOGICAL: Awake and alert. No obvious cranial nerve deficits. Motor grossly within normal limits. Normal speech. PSYCHIATRIC: Appropriate mood and affect; insight and judgment normal. Data Data Last Documented VS Vital Signs Date Time Temp Pulse Resp B/P (MAP) Pulse Ox O2 Delivery O2 Flow Rate FiO2 07/06/17 12:23 20 07/06/17 11:40 96 161/94 (116) 95 Room Air 07/06/17 08:29 98.6 Orders Orders Complete Blood Count With Diff (07/06/17 09:04) Comprehensive Metabolic Panel (07/06/17 09:04) Sodium Chlor 0.9% 1000 Ml Inj (Ns 1000 M (07/06/17 09:15) Ondansetron Inj (Zofran Inj) (07/06/17 09:15) Prochlorperazine Inj (Compazine Inj) (07/06/17 09:30) Lorazepam Inj (Ativan Inj) (07/06/17 10:00) Sodium Chlor 0.9% 1000 Ml Inj (Ns 1000 M (07/06/17 10:30) Hydromorphone Pf Inj (Dilaudid Pf Inj) (07/06/17 11:30) Ct Abd/Pel W Iv Contrast(Rout) (07/06/17 11:27) Ondansetron Inj (Zofran Inj) (07/06/17 11:30) Pantoprazole Inj (Protonix Inj) (07/06/17 11:30) Iohexol 350 Inj (Omnipaque 350 Inj) (07/06/17 12:08) Labs Laboratory Tests Test 07/06/17 09:05 White Blood Count 12.9 TH/MM3 Red Blood Count 4.99 MIL/MM3 Hemoglobin 16.8 GM/DL Hematocrit 50.0 % Mean Corpuscular Volume 100.3 FL Mean Corpuscular Hemoglobin 33.6 PG Mean Corpuscular Hemoglobin Concent 33.5 % Red Cell Distribution Width 12.7 % Platelet Count 226 TH/MM3 Mean Platelet Volume 9.5 FL Neutrophils (%) (Auto) 90.0 % Lymphocytes (%) (Auto) 5.8 % Monocytes (%) (Auto) 2.4 % Eosinophils (%) (Auto) 0.3 % Basophils (%) (Auto) 1.5 % Neutrophils # (Auto) 11.7 TH/MM3 Lymphocytes # (Auto) 0.7 TH/MM3 Monocytes # (Auto) 0.3 TH/MM3 Eosinophils # (Auto) 0.0 TH/MM3 Basophils # (Auto) 0.2 TH/MM3 CBC Comment DIFF FINAL Differential Comment Blood Urea Nitrogen 5 MG/DL Creatinine 0.89 MG/DL Random Glucose 106 MG/DL Total Protein 7.8 GM/DL Albumin 3.8 GM/DL Calcium Level 9.3 MG/DL Alkaline Phosphatase 115 U/L Aspartate Amino Transf (AST/SGOT) 49 U/L Alanine Aminotransferase (ALT/SGPT) 36 U/L Total Bilirubin 0.8 MG/DL Sodium Level 136 MEQ/L Potassium Level 4.2 MEQ/L Chloride Level 101 MEQ/L Carbon Dioxide Level 30.0 MEQ/L Anion Gap 5 MEQ/L Estimat Glomerular Filtration Rate 87 ML/MIN [facility] Medical Decision Making Medical Screen Exam Complete: Yes Emergency Medical Condition: Yes Medical Record Reviewed: Yes Differential Diagnosis Differential includes pancreatitis, acute gastritis, gastroenteritis Narrative Course Patient was given IV fluids and repeated doses of antibiotics but he had ongoing nausea vomiting pain. He felt this was similar to an episode that occurred just a couple months ago when he had a CT scan. He initially declined a CT but subsequently consented as he was not getting any better. CT scan has been done and is read as concerning for early or partial small bowel obstruction. Diagnosis Primary Impression: Small bowel obstruction Marcel Sherman MD July 06, 2017 09:07
[2017-07-06] MEDS ORDERED: SODIUM CHLOR 0.9% 1000 ML INJ 1,000 ML IV ONE ×3 (09:15→12:45)
[2017-07-06] MEDS ORDERED: ONDANSETRON HCL 4 MG/2 ML VIAL IV PUSH ONE ×2 (09:15→11:30)
[2017-07-06] MEDS ORDERED: PROCHLORPERAZINE INJ 10 MG/2 ML VIAL IV PUSH ONE (09:30)
[2017-07-06 09:31] LABS: AUTOMATED NEUTROPHIL # 11.7 TH/MM3 (1.8-7.7); BASOPHIL # 0.2 TH/MM3 (0-0.2); BASOPHIL % 1.5 % (0.0-2.0); EOSINOPHIL % 0.3 % (0.0-4.0); HEMOGLOBIN 16.8 GM/DL (13.0-17.0); LYMPH % 5.8 % (9.0-44.0); LYMPHOCYTE # 0.7 TH/MM3 (1.0-4.8); MEAN CELL VOLUME 100.3 FL (80.0-100.0); MEAN CORPUSCULAR HEMOGLOBIN 33.6 PG (27.0-34.0); MEAN CORPUSCULAR HGB CONC 33.5 % (32.0-36.0); MEAN PLATELET VOLUME 9.5 FL (7.0-11.0); MONO % 2.4 % (0.0-8.0); MONOCYTE # 0.3 TH/MM3 (0-0.9); PLATELET COUNT 226 TH/MM3 (150-450); RED BLOOD COUNT 4.99 MIL/MM3 (4.50-5.90); RED CELL DISTRIBUTION WIDTH 12.7 % (11.6-17.2); WHITE BLOOD COUNT 12.9 TH/MM3 (4.0-11.0)
[2017-07-06 09:53] LABS: CALCIUM 9.3 MG/DL (8.5-10.1)
[2017-07-06 09:54] LABS: ALBUMIN 3.8 GM/DL (3.4-5.0); GLUCOSE,RANDOM 106 MG/DL (74-106)
[2017-07-06 09:57] LABS: CREATININE 0.89 MG/DL (0.60-1.30); GLOMERULAR FILTRATION RATE 87 ML/MIN (>89)
[2017-07-06 09:59] LABS: TOTAL PROTEIN 7.8 GM/DL (6.4-8.2)
[2017-07-06 10:00] LABS: ALKALINE PHOSPHATASE 115 U/L (45-117)
[2017-07-06] MEDS ORDERED: LORazepam 2 MG/ML VIAL IV PUSH ONE (10:00)
[2017-07-06 10:01] LABS: CHLORIDE 101 MEQ/L (98-107); SODIUM (NA) 136 MEQ/L (136-145)
[2017-07-06 10:09] LABS: BLOOD UREA NITROGEN 5 MG/DL (7-18)
[2017-07-06 10:10] LABS: ALT (GPT) 36 U/L (12-78)
[2017-07-06 10:16] LABS: TOTAL BILIRUBIN ADULT 0.8 MG/DL (0.2-1.0)
[2017-07-06 10:27] LABS: AST (GOT) 49 U/L (15-37)
[2017-07-06] MEDS ORDERED: HYDROmorphone HCL PF 2 MG/ML VIAL IV PUSH ONE (11:30)
[2017-07-06] MEDS ORDERED: PANTOPRAZOLE SODIUM 40 MG VIAL IV PUSH ONE (11:30)
[2017-07-06] MEDS ORDERED: IOHEXOL 350 MG/ML 10 ML VIAL (for RAD DIAG) IVCONTRAST ONE (12:08)
--- NOTE | 2017-07-06 12:22 | RADRPT ---
EXAM DATE/TIME: 07/06/2017 11:57 [facility] COMPARISON: CT ABDOMEN & PELVIS W CONTRAST, June 01, 2017, 20:42. INDICATIONS : Diffuse abdominal pain. Nausea, vomiting and diarrhea. IV CONTRAST: 75 cc Omnipaque 350 (iohexol) IV ORAL CONTRAST: No oral contrast ingested. RADIATION DOSE: 5.47 CTDIvol (mGy) MEDICAL HISTORY : Hepatitis C. Chronic obstructive pulmonary disease. Hypertension. SURGICAL HISTORY : Hernia repair. ENCOUNTER: Initial ACUITY: 2 days PAIN SCALE: 7/10 LOCATION: Abdomen. TECHNIQUE: Volumetric scanning of the abdomen and pelvis was performed. Using automated exposure control and ad justment of the mA and/or kV according to patient size, radiation dose was kept as low as reasonably achievable to obtain optimal diagnostic quality images. DICOM format image data is available electro nically for review and comparison. FINDINGS: LOWER LUNGS: The visualized lower lungs are clear. LIVER: Homogeneous density without lesion. There is no dilation of the biliary tree. No calcified gallston es. There is mild hepatic steatosis. SPLEEN: Normal size without lesion. PANCREAS: Within normal limits. KIDNEYS: Normal in size and shape. There is no mass, stone or hydronephrosis. ADRENAL GLANDS: Within normal limits. VASCULAR: There is no aortic aneurysm. BOWEL/MESENTERY: The there is mild dilatation of the stomach with large air fluid level. There are multiple loops of b orderline dilated proximal small bowel with several air-fluid levels. The mid and distal small bowel are normal in caliber with smaller air-fluid levels. There is no free air or fluid. ABDOMINAL WALL: Within normal limits. RETROPERITONEUM: There is no lymphadenopathy. BLADDER: No wall thickening or mass. REPRODUCTIVE: Within normal limits. INGUINAL: There is no lymphadenopathy or hernia. MUSCULOSKELETAL: Within normal limits for patient age. CONCLUSION: 1. Abnormal bowel gas pattern multiple loops of borderline dilated proximal small bowel with multiple air-fluid levels. The distal and mid small bowel as well as the colon are within normal caliber. The se findings are of concern for early or partial small bowel obstruction. 2. Mild hepatic steatosis again noted. The gallbladder remains unremarkable. Manav Catalan MD on July 06, 2017 at 12:15 Board Certified Radiologist. This report was verified electronically.
[2017-07-06] MEDS: LACTATED RINGER'S 1000 ML INJ 1,000 ML IV SCH (13:00)
--- NOTE | 2017-07-06 13:46 | HHI.HP ---
HPI Service [facility] Primary Care Physician Velasquez Porras MD Admission Diagnosis SMALL BOWEL OBSTRUCTION Diagnoses: Chief Complaint: Nausea, vomiting and diarrhea Abdominal pain Travel History International Travel<30 Days: No Contact w/Intl Traveler <30 Da: No Traveled to Known Affected Are: No Sepsis Criteria SIRS Criteria (2 or more): Heart rate over 90, WBC > 19094, < 4000 or > 10% bands History of Present Illness This is a 57-year-old male patient with a known medical history of COPD, history of hepatitis C, hypertension who presented to the ED with complaints of nausea, vomiting and diarrhea 1 day. Patient states that last evening his symptoms developed. He denies any black stools or hematozemia. He denies any recent fever, chills, headache, shortness of breath, or dysuria. Patient does admit to a past hernia repair in the . Does follow with Dr. Porras in the outpatient setting for management of hepatitis C. Last colonoscopy was a year ago which was reportedly negative. Lives at home with his . Does admit to smoking 6 cigarettes per day as well as a 6 pack of beer a week. Abdominal/ pelvis CT showing abnormal bowel pattern multiple loops of borderline dilated proximal small bowel with multiple air-fluid levels. Review of Systems Constitutional: DENIES: Fatigue, Fever, Chills Eyes: DENIES: Diplopia Respiratory: DENIES: Cough, Sputum production, Shortness of breath Cardiovascular: DENIES: Chest pain, Palpitations Gastrointestinal: COMPLAINS OF: Abdominal pain, Nausea, Vomiting, DENIES: Black stools, Bloody stools, Constipation, Diarrhea Musculoskeletal: DENIES: Joint pain Immunologic/allergic: DENIES: Eczema Neurologic: DENIES: Abnormal gait Psychiatric: COMPLAINS OF: Anxiety Except as stated in HPI: all other systems reviewed are Neg Past Family Social History Past Medical History Hepatitis C with prior treatment COPD Anxiety and depression Hypertension History of cervical disc herniations Tobacco abuse Past Surgical History Hernia repair in 1979. Reported Medications Active Gaviscon Extra Strength R Liq (Aluminum Hydroxide-Mag Carb Liq) 508-475 Mg/10 Ml Susp 10-20 Ml PO QID PRN 7 Days Maximum 80 mL/24 hrs. Oxygen (O2) Device Liter GINA.CANULA CONTINUOUS PRN Oxygen Concentrator Portable Gaseous 2 L/min via Nasal Canula Continuous For 99 months Pantoprazole (Pantoprazole Sodium) 40 Mg Tab 40 Mg PO DAILY Lisinopril 20 Mg Tab 20 Mg PO DAILY Reported Propranolol (Propranolol HCl) 20 Mg Tab 20 Mg PO Q12HR Lorazepam 0.5 Mg Tab 0.5 Mg PO HS PRN Aspirin 81 Mg Chew 81 Mg CHEW DAILY Meloxicam 7.5 Mg Tab 15 Mg PO DAILY Gabapentin 600 Mg Tab 600 Mg PO BID Ipratropium Neb (Ipratropium [place]) 0.5 Mg/2.5 Ml Amp 0.5 Mg NEB Q6HR NEB Albuterol Neb (Albuterol Sulfate) 2.5 Mg/0.5 Ml Neb 2.5 Mg NEB Q6HR NEB Note: The Albuterol Sulfate Inhalation Solution is concentrated and must be diluted. Read complete instructions carefully before using. Proair Hfa 8.5 GM Inh (Albuterol Sulfate) 90 Mcg/Act Aer 2 Puff INH Q4-6H PRN 108 mcg/actuation Allergies: Coded Allergies: No Known Allergies (Verified Adverse Reaction, Unknown, 07/06/17) Active Ordered Medications Current Medications Medications (Trade) Dose Ordered Sig/Mary Route Start Time Stop Time Status Last Admin Sodium Chloride 1,000 ml @ 250 mls/hr Q4H ONCE IV 07/06/17 12:45 07/06/17 16:44 07/06/17 12:54 (Morphine Inj) 2 mg Q4H PRN IV PUSH 07/06/17 13:00 (Zofran Inj) 4 mg Q6H PRN IV PUSH 07/06/17 13:00 (Protonix Inj) 40 mg DAILY IV PUSH 07/07/17 09:00 Lactated Ringer's 1,000 ml @ 84 mls/hr [id number] IV 07/06/17 13:00 (Vasotec Inj) 1.25 mg Q6H PRN IV PUSH 07/06/17 15:30 (Proair Hfa Inh) 2 puff BID PRN INH 07/06/17 15:30 (Atrovent Neb) 0.5 mg Q6HR WHILE AWAKE NEB NEB 07/06/17 20:00 Family History Maternal medical history significant for stroke. Father had emphysema. Social History Patient admits to smoking 6-8 cigarettes per day for many years now. Admits to drinking 1 pack of beer/alcohol per week. Denies any illicit drug use. Physical Exam Vital Signs Vital Signs Date Time Temp Pulse Resp B/P (MAP) Pulse Ox O2 Delivery O2 Flow Rate FiO2 07/06/17 12:23 20 07/06/17 11:40 96 20 161/94 (116) 95 Room Air 07/06/17 10:41 90 20 172/100 (124) 95 Room Air 07/06/17 09:45 92 20 176/92 (120) 99 Room Air 07/06/17 08:29 98.6 104 18 168/106 (126) 99 Physical Exam GENERAL: Well-developed, well-nourished patient in NAD. SKIN: Warm and dry. No rash. HEAD: Normocephalic. Atraumatic. EYES: Pupils equal and round. No scleral icterus. No injection or drainage. ENT: No nasal bleeding or discharge. Mucous membranes pink and moist. NECK: Supple. Trachea midline. CARDIOVASCULAR: Regular rate and rhythm. S1, S2 noted. No murmur appreciated. RESPIRATORY: No accessory muscle use. Clear to auscultation. Breath sounds equal bilaterally. GASTROINTESTINAL: Abdomen soft, tenderness to the umbilical area, mildly distended. Hypoactive bowel sounds x4. MUSCULOSKELETAL: No obvious deformities. Extremities without clubbing, cyanosis , or edema. NEUROLOGICAL: Awake and alert. No obvious cranial nerve deficits. Motor grossly within normal limits. 5/5 muscle strength in bilateral upper and lower extremities. Normal speech. PSYCHIATRIC: Appropriate mood and affect; insight and judgment normal. Laboratory Laboratory Tests Test 07/06/17 09:05 White Blood Count 12.9 Red Blood Count 4.99 Hemoglobin 16.8 Hematocrit 50.0 Mean Corpuscular Volume 100.3 Mean Corpuscular Hemoglobin 33.6 Mean Corpuscular Hemoglobin Concent 33.5 Red Cell Distribution Width 12.7 Platelet Count 226 Mean Platelet Volume 9.5 Neutrophils (%) (Auto) 90.0 Lymphocytes (%) (Auto) 5.8 Monocytes (%) (Auto) 2.4 Eosinophils (%) (Auto) 0.3 Basophils (%) (Auto) 1.5 Neutrophils # (Auto) 11.7 Lymphocytes # (Auto) 0.7 Monocytes # (Auto) 0.3 Eosinophils # (Auto) 0.0 Basophils # (Auto) 0.2 CBC Comment DIFF FINAL Differential Comment Blood Urea Nitrogen 5 Creatinine 0.89 Random Glucose 106 Total Protein 7.8 Albumin 3.8 Calcium Level 9.3 Alkaline Phosphatase 115 Aspartate Amino Transf (AST/SGOT) 49 Alanine Aminotransferase (ALT/SGPT) 36 Total Bilirubin 0.8 Sodium Level 136 Potassium Level 4.2 Chloride Level 101 Carbon Dioxide Level 30.0 Anion Gap 5 Estimat Glomerular Filtration Rate 87 Result Diagram: 07/06/1790407/06/17 09 Imaging Last Impressions Abdomen/Pelvis CT 07/06/17 1127 Signed Impressions: Service Date/Time: Thursday, July 06, 2017 11:57 - CONCLUSION: 1. Abnormal bowel gas pattern multiple loops of borderline dilated proximal small bowel with multiple air-fluid levels. The distal and mid small bowel as well as the colon are within normal caliber. These findings are of concern for early or partial small bowel obstruction. 2. Mild hepatic steatosis again noted. The gallbladder remains unremarkable. Manav Catalan MD Septic Shock Reassessment Septic shock perfusion: reassessment completed Caprini VTE Risk Assessment Caprini VTE Risk Assessment: No/Low Risk (score <= 1) Caprini Risk Assessment Model Point Value = 1 Point Value = 2 Point Value = 3 Point Value = 5 Age 41-60 Minor surgery BMI > 25 kg/m2 Swollen legs Varicose veins or History of unexplained or recurrent spontaneous Oral contraceptives or hormone replacement Sepsis (< 1 month) Serious lung disease, including pneumonia (< 1 month) Abnormal pulmonary function Acute myocardial infarction Congestive heart failure (< 1 month) History of inflammatory bowel disease Medical patient at bed rest Age 61-74 Arthroscopic surgery Major open surgery (> 45 min) Laparoscopic surgery (> 45 min) Malignancy Confined to bed (> 72 hours) Immobilizing plaster cast Central venous access Age >= 75 History of VTE Family history of VTE Factor V Leiden Prothrombin [id number] Lupus anticoagulant Anticardiolipin antibodies Elevated serum homocysteine Heparin-induced thrombocytopenia Other congenital or acquired thrombophilia Stroke (< 1 month) Elective arthroplasty Hip, pelvis, or leg fracture Acute spinal cord injury (< 1 month) Prophylaxis Regimen Total Risk Factor Score Risk Level Prophylaxis Regimen 0-1 Low Early ambulation 2 Moderate Order ONE of the following: *Sequential Compression Device (SCD) *Heparin 5000 units SQ BID 3-4 Higher Order ONE of the following medications: *Heparin 5000 units SQ TID *Enoxaparin/Lovenox 40 mg SQ daily (WT < 150 kg, CrCl > 30 mL/min) *Enoxaparin/Lovenox 30 mg SQ daily (WT < 150 kg, CrCl > 10-29 mL/min) *Enoxaparin/Lovenox 30 mg SQ BID (WT < 150 kg, CrCl > 30 mL/min) AND/OR *Sequential Compression Device (SCD) 5 or more Highest Order ONE of the following medications: *Heparin 5000 units SQ TID (Preferred with Epidurals) *Enoxaparin/Lovenox 40 mg SQ daily (WT < 150 kg, CrCl > 30 mL/min) *Enoxaparin/Lovenox 30 mg SQ daily (WT < 150 kg, CrCl > 10-29 mL/min) *Enoxaparin/Lovenox 30 mg SQ BID (WT < 150 kg, CrCl > 30 mL/min) AND *Sequential Compression Device (SCD) Assessment and Plan Problem List: (1) Small bowel obstruction ICD Code: K56.609 - Unspecified intestinal obstruction, unspecified as to partial versus complete obstruction Status: Acute (2) COPD exacerbation ICD Code: J44.1 - Chronic obstructive pulmonary disease with (acute) exacerbation Status: Acute (3) HTN (hypertension), benign ICD Code: I10 - Essential (primary) hypertension Status: Chronic Assessment and Plan This is a 57-year-old male patient with a known medical history of COPD, history of hepatitis C, hypertension who presented to the ED with complaints of nausea, vomiting and diarrhea 1 day. Patient states that last evening his symptoms developed. Partial small bowel obstruction with associated nausea, vomiting - Abdominal/pelvis CT reviewed showing abnormal bowel gas pattern multiple loops of borderline dilated proximal small bowel with multiple air-fluid levels. Concern for early or partial small bowel obstruction. Gallbladder remains unremarkable. Mild hepatic steatosis. - We will keep n.p.o. for now. Rest bowel. Continue IV fluids. - Was given Protonix. We will continue scheduled. - Pain control, morphine IV available per pain scale. - Nausea, Zofran available PRN. Leukocytosis and tachycardia (meets SIRS criteria on presentation) -White blood cell 12.9. With left band shift. Monitor for infection. - Was given 2 L NS bolus in ED. Will check lactic acid. Continue IVF. - Patient with T-max 100.3. Blood cultures ordered and pending. Follow. Hypertension, chronic: Systolic BP elevated. Unable to take PO medications at this time. Vasotec IV available. Monitor BP trends. History of COPD not in exacerbation: Continue home inhalers. Atrovent ordered q6hr. DVT Prophylaxis: SCDs. Physician Certification 2 Midnight Certification Type: Admission for Inpatient Services Order for Inpatient Services The services are ordered in accordance with Medicare regulations or non- Medicare payer requirements, as applicable. In the case of services not specified as inpatient-only, they are appropriately provided as inpatient services in accordance with the 2-midnight benchmark. Estimated LOS (days): 3 3 days is the estimated time the patient will need to remain in the hospital, assuming treatment plan goals are met and no additional complications. Post-Hospital Plan: Home Kasia Pinedo July 06, 2017 13:46
[2017-07-06] MEDS ORDERED: ENALAPRILAT 1.25 MG/ML VIAL IV PUSH PRN (15:30)
[2017-07-06] MEDS ORDERED: ALBUTEROL SULFATE 90 MCG/ACT HFA 8 GM INHALER INH PRN (15:30)
[2017-07-06] MEDS ORDERED: RESP: IPRATROPIUM 0.5 MG/2.5 ML NEB NEB SCH (16:00)
--- NOTE | 2017-07-06 17:06 | PD.CONS ---
HPI Service General surgery Consult Requested By JACLYN Valenzuela Reason for Consult Question bowel obstruction Primary Care Physician Velasquez Porras MD History of Present Illness Is a very pleasant 57-year-old man who indicates over the past several days he has experienced abdominal pain nausea and diarrhea. He threw up today bile and food but no blood. He received morphine and Ativan in the emergency department so he is not the best historian at this point. He indicates his knows the story better but she is unavailable at this time. He was evaluated in the emergency department found to have a mildly elevated white blood cell count with a left shift, a low-grade fever, abdominal distention and tenderness and on CT scan dilated distended stomach and proximal small bowel suggestive of possible bowel obstruction. The patient has had no prior abdominal surgery outside of remotely a right inguinal hernia repair. He has had diarrhea for the past several days. He has not slept for several days and just wants to sleep. Review of Systems Constitutional: COMPLAINS OF: Fever, Change in appetite Respiratory: COMPLAINS OF: Shortness of breath Gastrointestinal: COMPLAINS OF: Abdominal pain, Diarrhea, Nausea, Vomiting Other Patient indicates he has an enlarged prostate and intermittently urinary dribbling and difficulty emptying his bladder. He does not know if he has had prior previous urinary tract infections or not. Past Family Social History Past Medical History Hepatitis C COPD please refer to H&P Past Surgical History Right inguinal hernia repair many years ago Reported Medications Please see admission history and physical for routine medications Allergies: Coded Allergies: No Known Allergies (Verified Adverse Reaction, Unknown, 07/06/17) Active Ordered Medications Current Medications Medications (Trade) Dose Ordered Sig/Mary Route Start Time Stop Time Status Last Admin (Morphine Inj) 2 mg Q4H PRN IV PUSH 07/06/17 13:00 (Zofran Inj) 4 mg Q6H PRN IV PUSH 07/06/17 13:00 (Protonix Inj) 40 mg DAILY IV PUSH 07/07/17 09:00 Lactated Ringer's 1,000 ml @ 84 mls/hr [id number] IV 07/06/17 13:00 07/06/17 13:00 (Vasotec Inj) 1.25 mg Q6H PRN IV PUSH 07/06/17 15:30 (Proair Hfa Inh) 2 puff BID PRN INH 07/06/17 15:30 (Atrovent Neb) 0.5 mg Q6HR WHILE AWAKE NEB NEB 07/06/17 20:00 Family History Noncontributory Social History Prior history of tobacco abuse still smokes 6 cigarettes a day. Prior history of alcohol abuse still drinks 6 beers a week. As hepatitis C. Physical Exam Vital Signs Vital Signs Date Time Temp Pulse Resp B/P (MAP) Pulse Ox O2 Delivery O2 Flow Rate FiO2 07/06/17 16:00 100.2 90 20 171/108 (129) 97 07/06/17 14:41 07/06/17 12:23 20 07/06/17 11:40 96 20 161/94 (116) 95 Room Air 07/06/17 10:41 90 20 172/100 (124) 95 Room Air 07/06/17 09:45 92 20 176/92 (120) 99 Room Air 07/06/17 08:29 98.6 104 18 168/106 (126) 99 Physical Exam HEENT normocephalic atraumatic pupils 3 mm round and sluggishly reactive. Probable cataract right eye. Sclera anicteric. Oropharynx is edentulous with moist mucous membranes. Neck is supple without adenopathy. Midline trachea no jugular venous distention no carotid bruits no thyromegaly. Lung sounds are distant there are no rales or rhonchi. Heart sounds are regular without obvious murmur rub or gallop abdomen is soft protuberant diffusely mildly tender without rebound or guarding. He has normal active bowel sounds. No high -pitched tinkling. No abdominal bruits. Well-healed scar right groin no evidence of recurrent hernia. External genitalia appear normal. Rectal exam not repeated. Extremities got some mild bruising and a scab in the left eubanks. There is no cyanosis clubbing or edema. He has equal radial and dorsalis pedis pulses. Neurologically he is a little narcotize by the morphine and Ativan provided. He just wants to sleep. No focal deficits are noted. Laboratory Laboratory Tests Test 07/06/17 09:05 White Blood Count 12.9 Red Blood Count 4.99 Hemoglobin 16.8 Hematocrit 50.0 Mean Corpuscular Volume 100.3 Mean Corpuscular Hemoglobin 33.6 Mean Corpuscular Hemoglobin Concent 33.5 Red Cell Distribution Width 12.7 Platelet Count 226 Mean Platelet Volume 9.5 Neutrophils (%) (Auto) 90.0 Lymphocytes (%) (Auto) 5.8 Monocytes (%) (Auto) 2.4 Eosinophils (%) (Auto) 0.3 Basophils (%) (Auto) 1.5 Neutrophils # (Auto) 11.7 Lymphocytes # (Auto) 0.7 Monocytes # (Auto) 0.3 Eosinophils # (Auto) 0.0 Basophils # (Auto) 0.2 CBC Comment DIFF FINAL Differential Comment Blood Urea Nitrogen 5 Creatinine 0.89 Random Glucose 106 Total Protein 7.8 Albumin 3.8 Calcium Level 9.3 Alkaline Phosphatase 115 Aspartate Amino Transf (AST/SGOT) 49 Alanine Aminotransferase (ALT/SGPT) 36 Total Bilirubin 0.8 Sodium Level 136 Potassium Level 4.2 Chloride Level 101 Carbon Dioxide Level 30.0 Anion Gap 5 Estimat Glomerular Filtration Rate 87 Result Diagram: 07/06/1790407/06/[address] scan reviewed which shows distended stomach and proximal small bowel. It appears that contrast goes beyond these areas and maybe even present in the colon. There is no discrete transition point that I could see. Assessment and Plan Assessment and Plan 57-year-old man with several day history of abdominal pain nausea diarrhea. Patient had emesis today. Workup demonstrates low-grade fever mildly elevated white count with left shift and CT demonstrating distended stomach and proximal small bowel at least suggestive of the possibility of a bowel obstruction. He has no history of abdominal surgery making adhesional obstruction unlikely. Given the several day history of diffuse abdominal discomfort nausea and diarrhea and emesis today he may have a viral enteritis. I am not anxious to advise surgical intervention at this time. He can be supported and followed for several days. If he does not progress consideration for upper GI small bowel follow-through should be made to see if we can demonstrate an obstruction. At this time I feel it is unlikely he will require surgical intervention. We will follow peripherally through the weekend. I will order a urinalysis and follow-up flat and upright x-rays of the abdomen. Cali Machado MD July 06, 2017 17:06
[2017-07-06] MEDS: MORPHINE SULFATE 4 MG/ML INJ IV PUSH PRN (17:25)
[2017-07-06] MEDS: ONDANSETRON HCL 4 MG/2 ML VIAL IV PUSH PRN (17:25)
[2017-07-06] MEDS: RESP: IPRATROPIUM 0.5 MG/2.5 ML NEB NEB SCH (19:47)
[2017-07-07 00:54] LABS: BLOOD, URINE NEG (NEG); GLUCOSE,URINE NEG (NEG); KETONE, URINE 15 mg/dL (NEG); NITRITE,URINE NEG (NEG); URINE COLOR YELLOW (YELLW/STRAW); URINE LEUKOCYTE ESTERASE NEG (NEG)
[2017-07-07] MEDS: LACTATED RINGER'S 1000 ML INJ 1,000 ML IV SCH ×2 (00:57→12:45)
[2017-07-07 01:05] LABS: BILIRUBIN, URINE NEG (NEG); RBC, URINE 0-3 /hpf (0-3); WBC, URINE 0-2 /hpf (0-5)
[2017-07-07 01:06] LABS: SQUAMOUS EPITHELIAL CELL URINE 0-5 /hpf (0-5)
[2017-07-07 07:26] LABS: AUTOMATED NEUTROPHIL # 5.7 TH/MM3 (1.8-7.7); BASOPHIL # 0.1 TH/MM3 (0-0.2); BASOPHIL % 0.7 % (0.0-2.0); EOSINOPHIL % 0.6 % (0.0-4.0); HEMOGLOBIN 13.8 GM/DL (13.0-17.0); LYMPH % 14.1 % (9.0-44.0); MEAN CELL VOLUME 102.5 FL (80.0-100.0); MEAN CORPUSCULAR HEMOGLOBIN 34.6 PG (27.0-34.0); MEAN CORPUSCULAR HGB CONC 33.8 % (32.0-36.0); MEAN PLATELET VOLUME 9.5 FL (7.0-11.0); MONO % 8.6 % (0.0-8.0); MONOCYTE # 0.6 TH/MM3 (0-0.9); PLATELET COUNT 178 TH/MM3 (150-450); RED BLOOD COUNT 3.99 MIL/MM3 (4.50-5.90); RED CELL DISTRIBUTION WIDTH 12.8 % (11.6-17.2); WHITE BLOOD COUNT 7.4 TH/MM3 (4.0-11.0)
[2017-07-07 07:30] VITALS: BP 145/80; PULSE 75; RESP 20; TEMP 98; O2SAT 98
[2017-07-07] MEDS: RESP: IPRATROPIUM 0.5 MG/2.5 ML NEB NEB SCH ×3 (07:46→19:50)
[2017-07-07 07:49] VITALS: O2SAT 94
[2017-07-07 08:02] LABS: CHLORIDE 107 MEQ/L (98-107); SODIUM (NA) 140 MEQ/L (136-145)
[2017-07-07] MEDS: PANTOPRAZOLE SODIUM 40 MG VIAL IV PUSH SCH (08:08)
[2017-07-07 08:15] LABS: ALBUMIN 2.7 GM/DL (3.4-5.0); ALKALINE PHOSPHATASE 78 U/L (45-117); ALT (GPT) 24 U/L (12-78); AST (GOT) 25 U/L (15-37); BICARBONATE 26.8 MEQ/L (21.0-32.0); BLOOD UREA NITROGEN 7 MG/DL (7-18); CALCIUM 8.4 MG/DL (8.5-10.1); CREATININE 0.83 MG/DL (0.60-1.30); GLOMERULAR FILTRATION RATE 95 ML/MIN (>89); GLUCOSE,RANDOM 85 MG/DL (74-106); TOTAL BILIRUBIN ADULT 1.4 MG/DL (0.2-1.0); TOTAL PROTEIN 5.9 GM/DL (6.4-8.2)
--- NOTE | 2017-07-07 08:35 | RADRPT ---
EXAM DATE/TIME: 07/07/2017 08:16 [facility] COMPARISON: CT ABDOMEN & PELVIS W CONTRAST, July 06, 2017, 11:57. INDICATIONS : Small bowel obstruction MEDICAL HISTORY : Chronic obstructive pulmonary disease. Hepatitis C. Hypertension. SURGICAL HISTORY : None. ENCOUNTER: Subsequent ACUITY: 4 - 6 days PAIN SCORE: 0/10 LOCATION: Bilateral abdomen FINDINGS: Supine and upright views of the abdomen demonstrate mild air distention of the stomach, small bowel, and colon. No transition point is appreciated. The dilated proximal small bowel documented on yesterd ay's study has decreased. No organomegaly or concerning calcifications are identified. There is no ab normal mass effect. Lung bases demonstrate no definite abnormality. There are degenerative changes of the lumbar spine. CONCLUSION: Mild diffuse distention of the small bowel and colon in a nonobstructive pattern. The dilated proxima l small bowel segments on yesterday's CT scan have decreased. The current appearance does not indicat e small bowel obstruction. Given yesterday's CT findings, it may be prudent to obtain an additional f ollowup study to confirm a normal bowel gas pattern. Shaheed Cain MD on July 07, 2017 at 8:30 Board Certified Radiologist. This report was verified electronically.
--- NOTE | 2017-07-07 09:52 | HHI.PR ---
Subjective Remarks Partial small bowel obstruction. Patient seen and examined, family at bedside and updated. Patient is doing much improved, denies any further pain. Does admit to bowel movement this morning. Tolerating clear liquids well with no abdominal pain, nausea, vomiting. Attempt to advance diet as tolerated. Abdominal x-ray showing resolution of bowel obstruction, mildly diffuse distention of the small bowel and colon. Objective Vitals Vital Signs Date Time Temp Pulse Resp B/P (MAP) Pulse Ox O2 Delivery O2 Flow Rate FiO2 07/07/17 07:49 94 07/07/17 07:30 98.0 75 20 145/80 (101) 98 07/06/17 23:00 98.7 78 15 126/70 (88) 96 07/06/17 20:00 96.8 95 17 117/77 (90) 92 07/06/17 20:00 97.1 85 16 124/59 (80) 94 07/06/17 19:47 93 21 07/06/17 16:59 99.7 76 16 158/88 (111) 96 07/06/17 16:00 100.2 90 20 171/108 (129) 97 07/06/17 14:41 07/06/17 12:23 20 07/06/17 11:40 96 20 161/94 (116) 95 Room Air 07/06/17 10:41 90 20 172/100 (124) 95 Room Air I/O 07/06/17 07/06/17 07/06/17 07/07/17 07/07/17 07/07/17 07:00 15:00 23:00 07:00 15:00 23:00 Intake Total 1000 ml Balance 1000 ml Intake Oral 0 ml IV Total 1000 ml # Voids 2 Result Diagram: 07/07/17 0645 07/07/17 0645 Imaging Last Impressions Abdomen X-Ray 07/07/17 0000 Signed Impressions: Service Date/Time: Friday, July 07, 2017 08:16 - CONCLUSION: Mild diffuse distention of the small bowel and colon in a nonobstructive pattern. The dilated proximal small bowel segments on yesterday's CT scan have decreased. The current appearance does not indicate small bowel obstruction. Given yesterday's CT findings, it may be prudent to obtain an additional followup study to confirm a normal bowel gas pattern. Shaheed Cain MD Abdomen/Pelvis CT 07/06/17 1127 Signed Impressions: Service Date/Time: Thursday, July 06, 2017 11:57 - CONCLUSION: 1. Abnormal bowel gas pattern multiple loops of borderline dilated proximal small bowel with multiple air-fluid levels. The distal and mid small bowel as well as the colon are within normal caliber. These findings are of concern for early or partial small bowel obstruction. 2. Mild hepatic steatosis again noted. The gallbladder remains unremarkable. Manav Catalan MD Objective Remarks GENERAL: Well-developed, well-nourished patient in NAD. SKIN: Warm and dry. No rash. HEAD: Normocephalic. Atraumatic. EYES: Pupils equal and round. No scleral icterus. No injection or drainage. ENT: No nasal bleeding or discharge. Mucous membranes pink and moist. NECK: Supple. Trachea midline. CARDIOVASCULAR: Regular rate and rhythm. S1, S2 noted. No murmur appreciated. RESPIRATORY: No accessory muscle use. Clear to auscultation. Breath sounds equal bilaterally. GASTROINTESTINAL: Abdomen soft, non-tender, nondistended. Normoactive bowel sounds x4. No abdominal bruits. Vanco in previous scar, healed. MUSCULOSKELETAL: No obvious deformities. Extremities without clubbing, cyanosis , or edema. NEUROLOGICAL: Awake and alert. No obvious cranial nerve deficits. Motor grossly within normal limits. 5/5 muscle strength in bilateral upper and lower extremities. Normal speech. PSYCHIATRIC: Appropriate mood and affect; insight and judgment normal. A/P Problem List: (1) Small bowel obstruction ICD Code: K56.609 - Unspecified intestinal obstruction, unspecified as to partial versus complete obstruction Status: Acute (2) COPD exacerbation ICD Code: J44.1 - Chronic obstructive pulmonary disease with (acute) exacerbation Status: Acute (3) HTN (hypertension), benign ICD Code: I10 - Essential (primary) hypertension Status: Chronic Assessment and Plan This is a 57-year-old male patient with a known medical history of COPD, history of hepatitis C, hypertension who presented to the ED with complaints of nausea, vomiting and diarrhea 1 day. Patient states that last evening his symptoms developed. Partial small bowel obstruction with associated nausea, vomiting - Abdominal/pelvis CT reviewed showing abnormal bowel gas pattern multiple loops of borderline dilated proximal small bowel with multiple air-fluid levels. Concern for early or partial small bowel obstruction. Gallbladder remains unremarkable. Mild hepatic steatosis. Abdominal x-ray showing mildly diffuse distention of small bowel and colon no obstruction. - Patient symptoms have much improved. Will attempt clear liquid diet, monitor for toleration. Advance as tolerated. At this time we will continue IV fluids. - Protonix scheduled. - Pain control, morphine IV available per pain scale. - Nausea, Zofran available PRN. - General surgery following, appreciate input recommendations. No surgical intervention at this time. Leukocytosis and tachycardia (meets SIRS criteria on presentation) -White blood cell 12.9. With left band shift. Resolved today. Monitor for infection. - Was given 2 L NS bolus. Continue IVF. - Patient with T-max 100.3. Blood cultures no growth to date. No fever overnight. Lactic acid within normal limits.. Follow. Hypertension, chronic: Systolic BP elevated upon presentation. Unable to take PO medications at this time. Vasotec IV available. Monitor BP trends. History of COPD not in exacerbation: Continue home inhalers. Atrovent ordered q6hr. DVT Prophylaxis: SCDs. Kasia Pinedo July 07, 2017 09:52
[2017-07-07 11:50] VITALS: BP 154/92; PULSE 71; RESP 20; TEMP 98; O2SAT 97
[2017-07-07] MEDS: MORPHINE SULFATE 4 MG/ML INJ IV PUSH PRN ×2 (12:20→17:42)
[2017-07-07] MEDS: PROPRANOLOL HCL 20 MG TAB PO SCH ×2 (12:24→21:10)
[2017-07-07] MEDS: NICOTINE 14 MG/24 HR PATCH T-DERMAL SCH (12:25)
[2017-07-07] MEDS: LISINOPRIL 20 MG TAB PO SCH (12:25)
[2017-07-07] MEDS: MELOXICAM 15 MG TAB PO SCH (12:44)
[2017-07-07] MEDS: ONDANSETRON HCL 4 MG/2 ML VIAL IV PUSH PRN ×2 (12:48→17:42)
[2017-07-07 15:30] VITALS: BP 137/86; PULSE 69; RESP 20; TEMP 97.3; O2SAT 97
[2017-07-07 19:51] VITALS: O2SAT 96
[2017-07-07 20:00] VITALS: BP 161/98; PULSE 76; RESP 20; TEMP 98.2; O2SAT 94
[2017-07-07] MEDS ORDERED: LORazepam 0.5 MG TAB PO ONE (21:00)
[2017-07-07] MEDS ORDERED: REMOVE OLD PATCH T-DERMAL SCH (21:00)
[2017-07-07] MEDS: GABAPENTIN 300 MG CAP PO SCH (21:10)
[2017-07-08] VITALS: BP 144/98; PULSE 76; RESP 18; TEMP 98.4; O2SAT 94
[2017-07-08] MEDS: ONDANSETRON HCL 4 MG/2 ML VIAL IV PUSH PRN (04:42)
[2017-07-08] MEDS: MORPHINE SULFATE 4 MG/ML INJ IV PUSH PRN ×2 (04:42→09:42)
[2017-07-08] MEDS: LACTATED RINGER'S 1000 ML INJ 1,000 ML IV SCH ×2 (04:43→07:51)
[2017-07-08] MEDS: RESP: IPRATROPIUM 0.5 MG/2.5 ML NEB NEB SCH ×2 (07:46→13:19)
[2017-07-08] MEDS: PANTOPRAZOLE SODIUM 40 MG VIAL IV PUSH SCH (07:48)
[2017-07-08] MEDS: LISINOPRIL 20 MG TAB PO SCH (07:49)
[2017-07-08] MEDS: NICOTINE 14 MG/24 HR PATCH T-DERMAL SCH (07:49)
[2017-07-08] MEDS: PROPRANOLOL HCL 20 MG TAB PO SCH (07:49)
[2017-07-08 07:50] VITALS: BP 162/90; PULSE 75; RESP 20; TEMP 97.7; O2SAT 97
[2017-07-08] MEDS: GABAPENTIN 300 MG CAP PO SCH (07:50)
[2017-07-08] MEDS: MELOXICAM 15 MG TAB PO SCH (07:50)
[2017-07-08] MEDS ORDERED: REMOVE OLD PATCH T-DERMAL SCH (09:00)
[2017-07-08] MEDS ORDERED: cloNIDine HCL 0.1 MG TAB PO PRN (11:00)
[2017-07-08 11:50] VITALS: BP 165/95; PULSE 72; RESP 20; TEMP 97.7; O2SAT 96
--- NOTE | 2017-07-08 14:12 | HHI.DCPOC ---
Discharge Care Plan Diagnosis: (1) Small bowel obstruction (2) COPD exacerbation (3) HTN (hypertension), benign Goals to Promote Your Health * To prevent worsening of your condition and complications * To maintain your health at the optimal level Directions to Meet Your Goals Take your medications as prescribed Follow your dietary instruction Follow activity as directed Keep your appointments as scheduled Take your immunizations and boosters as scheduled If your symptoms worsen call your PCP, if no PCP go to Urgent Care Center or Emergency Room Smoking is Dangerous to Your Health. Avoid second hand smoke Call the 24-hour hour crisis hotline for domestic abuse at Kasia Pinedo July 08, 2017 14:12
--- NOTE | 2017-07-08 14:12 | HHI.DS ---
Discharge Summary Admission Date July 06, 2017 at 12:51 Discharge Date: July 08, 2017 Admitting Diagnosis SMALL BOWEL OBSTRUCTION (1) Small bowel obstruction ICD Code: K56.609 - Unspecified intestinal obstruction, unspecified as to partial versus complete obstruction Status: Acute (2) COPD exacerbation ICD Code: J44.1 - Chronic obstructive pulmonary disease with (acute) exacerbation Status: Acute (3) HTN (hypertension), benign ICD Code: I10 - Essential (primary) hypertension Status: Chronic Procedures See below. Brief History - From Admission This is a 57-year-old male patient with a known medical history of COPD, history of hepatitis C, hypertension who presented to the ED with complaints of nausea, vomiting and diarrhea 1 day. Patient states that last evening his symptoms developed. He denies any black stools or hematozemia. He denies any recent fever, chills, headache, shortness of breath, or dysuria. Patient does admit to a past hernia repair in the . Does follow with Dr. Porras in the outpatient setting for management of hepatitis C. Last colonoscopy was a year ago which was reportedly negative. Lives at home with his . Does admit to smoking 6 cigarettes per day as well as a 6 pack of beer a week. Abdominal/ pelvis CT showing abnormal bowel pattern multiple loops of borderline dilated proximal small bowel with multiple air-fluid levels. CBC/BMP: 07/07/17 0645 07/07/17 0645 Significant Findings Laboratory Tests Test 07/06/17 09:05 07/06/17 16:48 07/07/17 00:41 07/07/17 06:45 White Blood Count 12.9 TH/MM3 (4.0-11.0) Mean Corpuscular Volume 100.3 FL (80.0-100.0) 102.5 FL (80.0-100.0) Neutrophils (%) (Auto) 90.0 % (16.0-70.0) 76.0 % (16.0-70.0) Lymphocytes (%) (Auto) 5.8 % (9.0-44.0) Neutrophils # (Auto) 11.7 TH/MM3 (1.8-7.7) Lymphocytes # (Auto) 0.7 TH/MM3 (1.0-4.8) Blood Urea Nitrogen 5 MG/DL (7-18) Aspartate Amino Transf (AST/SGOT) 49 U/L (15-37) Estimat Glomerular Filtration Rate 87 ML/MIN (>89) Urine Ketones 15 mg/dL (NEG) Red Blood Count 3.99 MIL/MM3 (4.50-5.90) Mean Corpuscular Hemoglobin 34.6 PG (27.0-34.0) Monocytes (%) (Auto) 8.6 % (0.0-8.0) Total Protein 5.9 GM/DL (6.4-8.2) Albumin 2.7 GM/DL (3.4-5.0) Calcium Level 8.4 MG/DL (8.5-10.1) Total Bilirubin 1.4 MG/DL (0.2-1.0) Imaging Last Impressions Abdomen X-Ray 07/07/17 0000 Signed Impressions: Service Date/Time: Friday, July 07, 2017 08:16 - CONCLUSION: Mild diffuse distention of the small bowel and colon in a nonobstructive pattern. The dilated proximal small bowel segments on yesterday's CT scan have decreased. The current appearance does not indicate small bowel obstruction. Given yesterday's CT findings, it may be prudent to obtain an additional followup study to confirm a normal bowel gas pattern. Shaheed Cain MD Abdomen/Pelvis CT 07/06/17 1127 Signed Impressions: Service Date/Time: Thursday, July 06, 2017 11:57 - CONCLUSION: 1. Abnormal bowel gas pattern multiple loops of borderline dilated proximal small bowel with multiple air-fluid levels. The distal and mid small bowel as well as the colon are within normal caliber. These findings are of concern for early or partial small bowel obstruction. 2. Mild hepatic steatosis again noted. The gallbladder remains unremarkable. Manav Catalan MD PE at Discharge GENERAL: Well-developed, well-nourished patient in NAD. SKIN: Warm and dry. No rash. HEAD: Normocephalic. Atraumatic. EYES: Pupils equal and round. No scleral icterus. No injection or drainage. ENT: No nasal bleeding or discharge. Mucous membranes pink and moist. NECK: Supple. Trachea midline. CARDIOVASCULAR: Regular rate and rhythm. S1, S2 noted. No murmur appreciated. RESPIRATORY: No accessory muscle use. Clear to auscultation. Breath sounds equal bilaterally. GASTROINTESTINAL: Abdomen soft, non-tender, nondistended. Normoactive bowel sounds x4. No abdominal bruits. Vanco in previous scar, healed. MUSCULOSKELETAL: No obvious deformities. Extremities without clubbing, cyanosis , or edema. NEUROLOGICAL: Awake and alert. No obvious cranial nerve deficits. Motor grossly within normal limits. 5/5 muscle strength in bilateral upper and lower extremities. Normal speech. PSYCHIATRIC: Appropriate mood and affect; insight and judgment normal. Pt update on day of discharge Follow-up possible small bowel obstruction. Patient seen and examined lying in bed comfortably no apparent distress. All pain is resolved. Patient is tolerating p.o. intake with no abdominal pain, nausea or vomiting. Passing flatus. Positive bowel movement. Walking around in room. Afebrile. Vital signs stable. Hospital Course This is a 57-year-old male patient with a known medical history of COPD, history of hepatitis C, hypertension who presented to the ED with complaints of nausea, vomiting and diarrhea 1 day. Patient states that last evening his symptoms developed. Partial small bowel obstruction with associated nausea, vomiting. Abdominal/pelvis CT showing abnormal bowel gas pattern multiple loops of borderline dilated proximal small bowel with multiple air-fluid levels. Concern for early or partial small bowel obstruction. Gallbladder remains unremarkable. Mild hepatic steatosis. Bowel rest. Was given IV fluids. Protonix started. Pain control with IV morphine during hospitalization as well as Zofran for nausea. Patient's pain improved, did not need narcotics. Did present with leukocytosis and tachycardia. Improved upon discharge. Was given 2 L NS bolus in ED. Lactic acid within normal limits. Blood cultures negative 2 days. Patient did have hypertension, was unable to take p.o. medications, was given Vasotec IV. Restarted on lisinopril and given a dose of clonidine. Patient has history of COPD was in exacerbation, continue home inhalers. Atrovent as needed. Encourage tobacco and alcohol cessation. PCP upon discharge as well as surgery. Pt Condition on Discharge: Stable Discharge Disposition: Discharge Home Discharge Time: > 30 minutes Discharge Instructions DIET: Follow Instructions for: Heart Healthy Diet Speech Therapy-Diet Recommends: Regular Activities you can perform: Regular-No Restrictions Follow up Referrals: PCP Follow-up - 1 Week Continued Medications: Albuterol 8.5 GM Inh (Proair Hfa 8.5 GM Inh) 90 Mcg/Act Aer 2 PUFF INH Q4-6H PRN for SHORTNESS OF BREATH, #1 INHALER 0 Refills 108 mcg/actuation Albuterol Neb (Albuterol Neb) 2.5 Mg/0.5 Ml Neb 2.5 MG NEB Q6HR NEB, BOX Note: The Albuterol Sulfate Inhalation Solution is concentrated and must be diluted. Read complete instructions carefully before using. Aluminum Hydroxide-Mag Carb Liq (Gaviscon Extra Strength R Liq) 508-475 Mg/10 Ml Susp 10-20 ML PO QID PRN for HEARTBURN for 7 Days, ML 0 Refills Maximum 80 mL/24 hrs. Aspirin (Aspirin) 81 Mg Chew 81 MG CHEW DAILY, TAB 0 Refills Gabapentin (Gabapentin) 600 Mg Tab 600 MG PO BID, #60 TAB 0 Refills Ipratropium Neb (Ipratropium Neb) 0.5 Mg/2.5 Ml Amp 0.5 MG NEB Q6HR NEB for Breathing Treatment, NEBULE 0 Refills Lisinopril (Lisinopril) 20 Mg Tab 20 MG PO DAILY for htn, #60 TAB Lorazepam (Lorazepam) 0.5 Mg Tab 0.5 MG PO HS PRN for ANXIETY AND/OR INSOMNIA, TAB 0 Refills Meloxicam (Meloxicam) 7.5 Mg Tab 15 MG PO DAILY for Arthritis Pain, TAB 0 Refills Pantoprazole (Pantoprazole) 40 Mg Tab 40 MG PO DAILY for copd, #6 TAB Propranolol (Propranolol) 20 Mg Tab 20 MG PO Q12HR, #60 TAB 0 Refills Kasia Pinedo July 08, 2017 14:12
[2017-07-08 15:00] VITALS: BP 157/88; PULSE 80; RESP 20; TEMP 98.2; O2SAT 96
--- NOTE | 2017-07-10 15:51 | PQ ---
Physician Query Response Document PATIENT: SADIQ MUNGUIA : 1960 ADMIT DATE: 07/06/2017 12:51 PM DISCH DATE: 07/08/2017 4:13 PM RESPONDING PROVIDER #: [email or web address] QUERY TEXT: Conflicting Documentation Clarification A single mention or documentation of multiple diagnoses for the same clinical presentation appears in the record. Please clarify the diagnosis/diagnoses: COPD - in exacerbation or not in exacerbation? If you have any additional questions/comments and/or concerns, please do not hesitate to reach out to the [facility]I/Coding Hotline, Ext. [phone]. The patient's Clinical Indicators include: H ICD Code: J44.1 - Chronic obstructive pulmonary disease with (acute) exacerbation H Discharge Summary - Admitting Diagnosis: (2) COPD exacerbation ICD Code: J44.1 - Chronic obstructive pulmonary disease with (acute) exacerbation Hospital Course: Patient has history of COPD was in exacerbation, continue home inhalers. Atrovent a s needed. Progress Note 07/07/17: History of COPD not in exacerbation: Continue home inhalers. Atrovent ordered q 6hr. ED Report documents History of COPD ONLY, NO documentation of exacerbation upon admission. Query created by: Digna Lane on 07/10/2017 2:48 PM RESPONSE TEXT: Provider disagreed with this CDI query. Please refer to Kasia Pinedo thanks Electronically signed by: Manav Real MD 07/10/2017 3:47 PM
== END 2017-07-08 16:13 | disposition home or self-care (01) | DRG 389 ==
LOC: PHED 08:26 → PHEDA 12:51 → PH3B 14:15
PROVIDERS: ADMIT Hospitalist; ATTEND Hospitalist
DX: K56.600 Partial intestinal obstruction, unspecified as to cause (principal); J44.1 Chronic obstructive pulmonary disease with (acute) exacerbation; K76.0 Fatty (change of) liver, not elsewhere classified; I10 Essential (primary) hypertension; B19.20 Unspecified viral hepatitis C without hepatic coma; N40.0 Benign prostatic hyperplasia without lower urinary tract symptoms; F10.10 Alcohol abuse, uncomplicated; F17.210 Nicotine dependence, cigarettes, uncomplicated
CPT/HCPCS: 74019; 74177; 80053; 81001; 83605; 85025; 87040; 94640; 94664; 96361; 96374; 96375; 96376; C9113; J0780; J1170; J2060; J2270; J2405; J7030; J7120; J7644; Q9967